=== PATIENT | male | born 1965 | race Caucasian/White ===

== ENCOUNTER 2016-07-31 22:03 | Emergency (ER) | payer SELFPAY ==
[~2016-07-31 22:03] MED LIST: ALPR.5 PO; AUGM500T7 PO; DOXY100C PO
[2016-07-31 22:05] VITALS: BP 127/91; PULSE 101; RESP 16; TEMP 98.7; O2SAT 96
== END 2016-07-31 22:23 | disposition left against medical advice (07) ==
LOC: NED 22:03
DX: L98.8 Other specified disorders of the skin and subcutaneous tissue (principal)
CPT/HCPCS: 99281

== ENCOUNTER 2016-08-02 00:11 | Emergency (ER) | payer SELFPAY ==
[~2016-08-02] VITALS: Ht 160 cm; Wt 88.0 kg
[2016-08-02 00:14] VITALS: BP 144/67; PULSE 100; RESP 16; TEMP 99.1; O2SAT 95
[2016-08-02] MEDS ORDERED: METH40TA PO (00:54)
--- NOTE | 2016-08-02 01:13 | PD ---
HPI Chief Complaint: Skin Problem Time Seen by Provider: 01:04 Travel History International Travel<30 days: No Contact w/Intl Traveler<30days: No Traveled to known affect area: No History of Present Illness HPI Patient 50-year-old male with a history of peripheral vascular disease presents emergency Department with long-standing nonhealing wounds to bilateral ankles. She states she thinks her warms coming out of them. States that he noticed the wound starting to get more more red and he has lost his insurance and therefore not taking the antibiotic creams anymore. Denies any fever denies abdominal pain nausea or vomiting. This pain is been gradually worsening. PFSH Past Medical History Hx Anticoagulant Therapy: No Blood Disorders: No Anxiety: No Depression: No Cancer: No Cardiovascular Problems: No Chemotherapy: No Cerebrovascular Accident: No Diabetes: No Endocrine: No Gastrointestinal Disorders: No Genitourinary: No Immune Disorder: No Kidney Stones: Yes Medical other: Yes (Drug abuse) Musculoskeletal: No Psychiatric: Yes (methadone therapy, prior opiate addiction ) Respiratory: No Integumentary: Yes (cellulitis) Immunizations Current: Yes Tetanus Vaccination: < 5 Years Influenza Vaccination: No Past Surgical History Surgical History: No Previous Surgery AICD: No Hysterectomy: No Joint Replacement: No Pacemaker: No Other Surgery: No Social History Alcohol Use: No Tobacco Use: No Substance Use: No Allergies-Medications (Allergen,Severity, Reaction): Coded Allergies: Adhesives (Verified Allergy, Severe, 08/02/16) Nubain (Verified Allergy, Severe, 08/02/16) Talwin (Verified Allergy, Severe, 08/02/16) *MDRO Multi-Drug Resistant Organism (Verified Adverse Reaction, Unknown, ) 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 The one on the left is fairly deep but does have good granulation tissue. There is significant surrounding cellulitis. While in the right is similar in size approximately 2 7 x 4 cm, this one is scabbed over. Again it is surrounded by some significant cellulitis. HEAD: Atraumatic. Normocephalic. EYES: Pupils equal and round. No scleral icterus. No injection or drainage. ENT: No nasal bleeding or discharge. Mucous membranes pink and moist. NECK: Trachea midline. No JVD. CARDIOVASCULAR: Regular rate and rhythm. No murmur appreciated. RESPIRATORY: No accessory muscle use. Clear to auscultation. Breath sounds equal bilaterally. GASTROINTESTINAL: Abdomen soft, non-tender, nondistended. Hepatic and splenic margins not palpable. MUSCULOSKELETAL: No obvious deformities. No clubbing. No cyanosis. No edema. NEUROLOGICAL: Awake and alert. No obvious cranial nerve deficits. Motor grossly within normal limits. Normal speech. PSYCHIATRIC: Appropriate mood and affect; insight and judgment normal. Data Data Last Documented VS Vital Signs Date Time Temp Pulse Resp B/P Pulse Ox O2 Delivery O2 Flow Rate FiO2 08/02/16 12:07 97.6 80 20 135/69 99 Room Air Orders Complete Blood Count With Diff (08/02/16 01:13) Comprehensive Metabolic Panel (08/02/16 01:13) Westergren Sedimentation Rate (08/02/16 01:13) C-Reactive Protein (Crp) (08/02/16 01:13) Ecg Monitoring (08/02/16 01:13) Iv Access Insert/Monitor (08/02/16 01:13) Oximetry (08/02/16 01:13) Sodium Chloride 0.9% Flush (Ns Flush) (08/02/16 01:15) Blood Culture (08/02/16 05:36) Clindamycin Inj (Cleocin Inj) (08/02/16 05:45) Mri Joint Ankle W&W/O Contrast (08/02/16 ) Mri Joint Ankle W&W/O Contrast (08/02/16 ) Gadodiamide Pf Inj (Omniscan Pf Inj) (08/02/16 09:16) Vancomycin Inj (Vancomycin Inj) (08/02/16 11:45) Methadone (Dolophine) (08/02/16 12:00) Labs Laboratory Tests Test 08/02/16 01:30 White Blood Count 5.3 TH/MM3 Red Blood Count 3.67 MIL/MM3 Hemoglobin 11.8 GM/DL Hematocrit 34.9 % Mean Corpuscular Volume 95.2 FL Mean Corpuscular Hemoglobin 32.2 PG Mean Corpuscular Hemoglobin 33.8 % Concent Red Cell Distribution Width 12.4 % Platelet Count 176 TH/MM3 Mean Platelet Volume 7.7 FL Neutrophils (%) (Auto) 65.2 % Lymphocytes (%) (Auto) 20.1 % Monocytes (%) (Auto) 12.7 % Eosinophils (%) (Auto) 1.7 % Basophils (%) (Auto) 0.3 % Neutrophils # (Auto) 3.4 TH/MM3 Lymphocytes # (Auto) 1.1 TH/MM3 Monocytes # (Auto) 0.7 TH/MM3 Eosinophils # (Auto) 0.1 TH/MM3 Basophils # (Auto) 0.0 TH/MM3 CBC Comment DIFF FINAL Differential Comment Erythrocyte Sedimentation Rate 36 mm/hr Sodium Level 139 MEQ/L Potassium Level 3.3 MEQ/L Chloride Level 101 MEQ/L Carbon Dioxide Level 31.1 MEQ/L Anion Gap 7 MEQ/L Blood Urea Nitrogen 9 MG/DL Creatinine 0.79 MG/DL Estimat Glomerular Filtration 104 ML/MIN Rate Random Glucose 98 MG/DL Calcium Level 8.5 MG/DL Total Bilirubin 1.0 MG/DL Aspartate Amino Transf 58 U/L (AST/SGOT) Alanine Aminotransferase 51 U/L (ALT/SGPT) Alkaline Phosphatase 60 U/L C-Reactive Protein 2.82 MG/DL Total Protein 7.1 GM/DL Albumin 3.1 GM/DL [facility] Medical Decision Making Medical Screen Exam Complete: Yes Emergency Medical Condition: Yes Differential Diagnosis Osteomyelitis (moderate suspicion), chronic sialitis, chronic nonhealing wound. Narrative Course Patient roomed emergency department, minimally elevated ESR and CRP. Prudence would suggest an MRI is indicated for this patient to rule out osteomyelitis. Patient was discussed with Dr. Hopkins at 07 150 follow-up MRI results and disposition the patient properly. He has been given gentamicin. I think that if the MRI is negative he could consider being discharged with follow-up interim exam possibly in ER and i would be happy to see him on tuesday if he does indeed go home. Scripts Sulfamethoxazole-Trimethoprim (Bactrim DS)800-160 Mg Tab1 Tab PO BID 10 Days Ref 0 Prov:Lorie Mcniar MD 08/02/16 John Mcbride MD Aug 02, 2016 01:13
[2016-08-02] MEDS ORDERED: SODIUM CHLORIDE 0.9% FLUSH 10 ML FLUSH IVF PRN (01:15)
[2016-08-02 01:48] LABS: AUTOMATED NEUTROPHIL # 3.4 TH/MM3 (1.8-7.7); BASOPHIL % 0.3 % (0.0-2.0); EOSINOPHIL # 0.1 TH/MM3 (0-0.4); EOSINOPHIL % 1.7 % (0.0-4.0); HEMATOCRIT 34.9 % (39.0-51.0); HEMO FLAGS DIFF FINAL; LYMPH % 20.1 % (9.0-44.0); LYMPHOCYTE # 1.1 TH/MM3 (1.0-4.8); MEAN CELL VOLUME 95.2 FL (80.0-100.0); MEAN CORPUSCULAR HEMOGLOBIN 32.2 PG (27.0-34.0); MEAN CORPUSCULAR HGB CONC 33.8 % (32.0-36.0); MONO % 12.7 % (0.0-8.0); NEUT % 65.2 % (16.0-70.0); PLATELET COUNT 176 TH/MM3 (150-450); RED BLOOD COUNT 3.67 MIL/MM3 (4.50-5.90); RED CELL DISTRIBUTION WIDTH 12.4 % (11.6-17.2); WHITE BLOOD COUNT 5.3 TH/MM3 (4.0-11.0)
[2016-08-02 02:04] LABS: ALKALINE PHOSPHATASE 60 U/L (45-117)
[2016-08-02 02:27] LABS: ALT (GPT) 51 U/L (12-78); ANION GAP 7 MEQ/L (5-15); AST (GOT) 58 U/L (15-37); BICARBONATE 31.1 MEQ/L (21.0-32.0); BLOOD UREA NITROGEN 9 MG/DL (7-18); CHLORIDE 101 MEQ/L (98-107); GLOMERULAR FILTRATION RATE 104 ML/MIN (>89); POTASSIUM 3.3 MEQ/L (3.5-5.1); SODIUM (NA) 139 MEQ/L (136-145)
[2016-08-02] MEDS ORDERED: CLINDAMYCIN INJ 900 MG in SODIUM CHLORIDE 0.9% INJ 100 ML IV ONE (05:45)
[2016-08-02 07:07] VITALS: BP 122/73; PULSE 77; RESP 18; O2SAT 97
[2016-08-02] MEDS ORDERED: GADODIAMIDE PF 287 MG/ML 5 ML VIAL (for RAD MRI) IV ONE (09:16)
--- NOTE | 2016-08-02 10:08 | RADRPT ---
EXAM DATE/TIME: 08/02/2016 08:28 [facility] COMPARISON: No previous studies available for comparison. INDICATIONS : Open wound on meidal right ankle. CONTRAST: 15 cc Omniscan (gadodiamide) IV MEDICAL HISTORY : None. SURGICAL HISTORY : None. ENCOUNTER: Sequela ACUITY: > 1 year PAIN SCORE: 8/10 LOCATION: Right medial ankle TECHNIQUE: Multiplanar, multisequence MRI examination was performed without contrast and after the intravenous a dministration of gadolinium. FINDINGS: Problem specific findings: The examination demonstrates a soft tissue defect along the medial aspect of the left ankle. This is adjacent to the medial malleolus. This is immediately above the tibialis posterior and flexor digitor um tendons. There is no focal fluid collection to indicate abscess. No abnormal marrow signal is seen within the medial malleolus. No abnormal signal is seen within the tibialis posterior or flexor digi torum tendons. The marrow signal throughout the remainder of the ankle and portions of foot visualized is within nor mal limits. No abnormal enhancement is seen. The remainder of the ligaments and tendons within the le ft ankle are intact. CONCLUSION: Soft tissue defect adjacent to the medial malleolus. There is some minimal fluid around the tibialis posterior tendon and some minimal enhancement of the soft tissues around the tibialis posterior tendo n. No abnormal signal is seen within the tibialis posterior tendon itself or in the flexor digitorum tendon No drainable fluid collection is seen. No findings to indicate osteomyelitis are identified. Isra Hopkins MD on August 02, 2016 at 9:58 Board Certified Radiologist. This report was verified electronically.
--- NOTE | 2016-08-02 11:14 | RADRPT ---
EXAM DATE/TIME: 08/02/2016 08:28 [facility] COMPARISON: No previous studies available for comparison. INDICATIONS : Open wound on medial ankle. CONTRAST: 15 cc Omniscan (gadodiamide) IV MEDICAL HISTORY : None. SURGICAL HISTORY : None. ENCOUNTER: Sequela ACUITY: > 1 year PAIN SCORE: 8/10 LOCATION: Left medial ankle TECHNIQUE: Multiplanar, multisequence MRI examination was performed without contrast and after the intravenous a dministration of gadolinium. FINDINGS: Problem specific findings: The examination demonstrates a large soft tissue defect involving the medial aspect of the left ankle . The post contrast images demonstrate cellulitic changes within the soft tissues adjacent to the def ect. There is some minimal fluid evident surrounding the tibialis posterior tendon. There is some min imal enhancement of this as well. There is no evidence of abnormal signal within the tendon itself. T he exam demonstrates normal marrow signal throughout the distal tibia and medial malleolus. No defini te findings to indicate osteomyelitis are identified. No focal, drainable fluid collection is seen. T he remainder of the ligaments and tendons within the left ankle are intact. CONCLUSION: 1. Large soft tissue defect seen medially. There is some fluid and a small amount of enhancement arou nd the tibialis posterior tendon. No abnormal signal is seen within the tendon itself. There is no fo archie drainable abscess. No abnormal marrow signal to indicate osteomyelitis are seen at this time. Isra Hopkins MD on August 02, 2016 at 11:09 Board Certified Radiologist. This report was verified electronically.
[2016-08-02] MEDS ORDERED: VANCOMYCIN INJ 1,000 MG in SODIUM CHLOR 0.9% 250 ML INJ 250 ML IV ONE (11:45)
[2016-08-02] MEDS ORDERED: BACT800T5 PO (11:54)
--- NOTE | 2016-08-02 11:54 | PD ---
Physical Exam Date Seen by Provider: Aug 02, 2016 Time Seen by Provider: 11:49 Narrative 50-year-old male came to the emergency room with history of bilateral medial malleoli or large nonhealing ulcerating wounds. Patient says it has been going on for past 2 weeks. He came in last night to be seen because his legs were getting red and swollen. He was seen by the previous ER physician. Please refer to his documentation regarding the history and physical. Blood test and MRI was done. White count was within normal limit but sedimentation rate and CRP were mildly elevated. Sign out to me was to follow-up on the MRI report. The report came back just a short while ago. Patient does not have any osteomyelitis but just soft tissue swelling along with the ulcer. I discussed it with the trim crew supervisor who was okay with outpatient treatment. The patient does not have insurance and they would not be able to follow up with him directly in his office. IV spoke with the patient and checked his peripheral pulses. Patient has dorsalis pedis bilaterally palpable and dopplerable. Patient has lost his insurance. He does not have a primary care right now. However he did not want to entertain the idea of being admitted. Currently there is no hard-core evidence to admit this patient. I will discharge him home on Bactrim. I've asked him to continue taking Bactrim and if he does not get better he needs to return. Patient is okay with that plan. He will be [facility] to the [facility]. Patient is on methadone 40 mg daily. He says that he missed his dose today since he did not go to get it from the clinic. He has requested for his dose for today here. Data Data Last Documented VS Orders Complete Blood Count With Diff (08/02/16 01:13) Comprehensive Metabolic Panel (08/02/16 01:13) Westergren Sedimentation Rate (08/02/16 01:13) C-Reactive Protein (Crp) (08/02/16 01:13) Ecg Monitoring (08/02/16 01:13) Iv Access Insert/Monitor (08/02/16 01:13) Oximetry (08/02/16 01:13) Sodium Chloride 0.9% Flush (Ns Flush) (08/02/16 01:15) Blood Culture (08/02/16 05:36) Clindamycin Inj (Cleocin Inj) (08/02/16 05:45) Mri Joint Ankle W&W/O Contrast (08/02/16 ) Mri Joint Ankle W&W/O Contrast (08/02/16 ) Gadodiamide Pf Inj (Omniscan Pf Inj) (08/02/16 09:16) Vancomycin Inj (Vancomycin Inj) (08/02/16 11:45) Methadone (Dolophine) (08/02/16 12:00) Labs MDM Supervised Visit with CHIQUITA: No Diagnosis Primary Impression: Cellulitis Qualified Code: L03.119 - Cellulitis of lower extremity, unspecified laterality Additional Impression: Ulcer Referrals: [facility] 2 days Additional Instruction: Please return to the ER if the condition worsens or any other new concerns. Otherwise follow-up with the community clinic whose name and number been given to you. Take the medication as per the prescription direction. Med/Other Pt SpecificInfo: Prescription(s) given Scripts Sulfamethoxazole-Trimethoprim (Bactrim DS)800-160 Mg Tab1 Tab PO BID 10 Days Ref 0 Prov:Lorie Mcnair MD 08/02/16 Disposition: 01 DISCHARGE HOME Condition: Stable Lorie Mcnair MD Aug 02, 2016 11:54 Mean Corpuscular Hemoglobin 33.8 % Concent Red Cell Distribution Width 12.4 % Platelet Count 176 TH/MM3 Mean Platelet Volume 7.7 FL Neutrophils (%) (Auto) 65.2 % Lymphocytes (%) (Auto) 20.1 % Monocytes (%) (Auto) 12.7 % Eosinophils (%) (Auto) 1.7 % Basophils (%) (Auto) 0.3 % Neutrophils # (Auto) 3.4 TH/MM3 Lymphocytes # (Auto) 1.1 TH/MM3 Monocytes # (Auto) 0.7 TH/MM3 Eosinophils # (Auto) 0.1 TH/MM3 Basophils # (Auto) 0.0 TH/MM3 CBC Comment DIFF FINAL Differential Comment Erythrocyte Sedimentation Rate 36 mm/hr Sodium Level 139 MEQ/L Potassium Level 3.3 MEQ/L Chloride Level 101 MEQ/L Carbon Dioxide Level 31.1 MEQ/L Anion Gap 7 MEQ/L Blood Urea Nitrogen 9 MG/DL Creatinine 0.79 MG/DL Estimat Glomerular Filtration 104 ML/MIN Rate Random Glucose 98 MG/DL Calcium Level 8.5 MG/DL Total Bilirubin 1.0 MG/DL Aspartate Amino Transf 58 U/L (AST/SGOT) Alanine Aminotransferase 51 U/L (ALT/SGPT) Alkaline Phosphatase 60 U/L C-Reactive Protein 2.82 MG/DL Total Protein 7.1 GM/DL Albumin 3.1 GM/DL MDM Supervised Visit with CHIQUITA: No Diagnosis Primary Impression: Cellulitis Qualified Code: L03.119 - Cellulitis of lower extremity, unspecified laterality Additional Impression: Ulcer Referrals: [facility] 2 days Additional Instruction: Please return to the ER if the condition worsens or any other new concerns. Otherwise follow-up with the community clinic whose name and number been given to you. Take the medication as per the prescription direction. Med/Other Pt SpecificInfo: Prescription(s) given Scripts Sulfamethoxazole-Trimethoprim (Bactrim DS)800-160 Mg Tab1 Tab PO BID 10 Days Ref 0 Prov:Lorie Mcnair MD 08/02/16 Disposition: 01 DISCHARGE HOME Condition: Stable Lorie Mcnair MD Aug 02, 2016 11:54
[2016-08-02] MEDS ORDERED: METHADONE HCL 10 MG TAB PO ONE (12:00)
[2016-08-02 12:07] VITALS: BP 135/69; PULSE 80; RESP 20; TEMP 97.6; O2SAT 99
== END 2016-08-02 12:44 | disposition home or self-care (01) ==
LOC: NEPC 00:11
DX: S91.002A Unspecified open wound, left ankle, initial encounter (principal); Z87.442 Personal history of urinary calculi; L03.116 Cellulitis of left lower limb; L03.115 Cellulitis of right lower limb; R70.0 Elevated erythrocyte sedimentation rate; I73.9 Peripheral vascular disease, unspecified; I87.2 Venous insufficiency (chronic) (peripheral); I87.313 Chronic venous hypertension (idiopathic) with ulcer of bilateral lower extremity
CPT/HCPCS: 73723; 80053; 85025; 85652; 86140; 87040; 96365; 99285; A9579

== ENCOUNTER 2016-08-05 20:32 | Inpatient (IN) | payer SELFPAY ==
[~2016-08-05] VITALS: Ht 172.7 cm; Wt 72.5 kg
[~2016-08-05 20:32] MED LIST changes: +BACT800T5 PO; +METH40TA PO
[2016-08-05 20:35] VITALS: BP 134/91; PULSE 88; RESP 16; TEMP 98.9; O2SAT 96
[2016-08-05] MEDS ORDERED: CLINDAMYCIN INJ 600 MG in SODIUM CHLORIDE 0.9% INJ 100 ML IV ONE (22:30)
[2016-08-05 23:06] LABS: AUTOMATED NEUTROPHIL # 3.8 TH/MM3 (1.8-7.7); BASOPHIL % 0.4 % (0.0-2.0); EOSINOPHIL # 0.3 TH/MM3 (0-0.4); EOSINOPHIL % 4.4 % (0.0-4.0); HEMATOCRIT 37.5 % (39.0-51.0); HEMO FLAGS DIFF FINAL; LYMPH % 21.2 % (9.0-44.0); LYMPHOCYTE # 1.2 TH/MM3 (1.0-4.8); MEAN CELL VOLUME 96.5 FL (80.0-100.0); MEAN CORPUSCULAR HEMOGLOBIN 31.8 PG (27.0-34.0); MEAN CORPUSCULAR HGB CONC 32.9 % (32.0-36.0); MONO % 8.7 % (0.0-8.0); NEUT % 65.3 % (16.0-70.0); PLATELET COUNT 184 TH/MM3 (150-450); RED BLOOD COUNT 3.88 MIL/MM3 (4.50-5.90); RED CELL DISTRIBUTION WIDTH 12.5 % (11.6-17.2); WHITE BLOOD COUNT 5.8 TH/MM3 (4.0-11.0)
[2016-08-05 23:21] LABS: BICARBONATE 29.2 MEQ/L (21.0-32.0); POTASSIUM 3.4 MEQ/L (3.5-5.1)
[2016-08-06] VITALS (7 sets, daily range): BP systolic 105–139; BP diastolic 64–78; PULSE 70–90; RESP 16–20; TEMP 98.1–98.7; O2SAT 96–99
[2016-08-06] MEDS ORDERED: NALOXONE HCL 0.4 MG/ML AMP IV PRN ×2 (00:15→00:30)
[2016-08-06] MEDS ORDERED: SODIUM CHLORIDE 0.9% FLUSH 10 ML FLUSH IV FLUSH PRN ×2 (00:15→00:30)
--- NOTE | 2016-08-06 00:21 | PD ---
HPI Chief Complaint: Skin Problem Time Seen by Provider: 22:18 Travel History International Travel<30 days: No Contact w/Intl Traveler<30days: No Traveled to known affect area: No History of Present Illness HPI This is a 51-year-old male who presents to the emergency department with poorly healing wounds on both his right and left lower extremities. He says he's had the right leg wound for months and he is to follow in wound care with Dr. Keyes lost his insurance and has been unable to follow-up. Over the past week his left leg has gotten increasingly warm, painful, with more green and yellow discharge and redness around the wound. He denies any fevers or chills. He was seen here from the emergency department for this wound several days ago and started on antibiotics. He was told that he should stay in the hospital but he declined at that time. He's been taking Bactrim for 4 days and is not improving. He also reports that he sees little insects in his wound with antenna, and he sees them climbing in and out of his skin. He says "I noticed sounds crazy be you can see them if you look really hard." PFSH Past Medical History Hx Anticoagulant Therapy: No Blood Disorders: No Anxiety: No Depression: No Cancer: No Cardiovascular Problems: No Chemotherapy: No Cerebrovascular Accident: No Diabetes: No Diminished Hearing: No Endocrine: No Gastrointestinal Disorders: No Genitourinary: No Immune Disorder: No Kidney Stones: Yes Musculoskeletal: No Psychiatric: Yes (methadone therapy, prior opiate addiction ) Respiratory: No Integumentary: Yes (CELLULITIS) Immunizations Current: Yes Tetanus Vaccination: Unknown Influenza Vaccination: No Past Surgical History Surgical History: No Previous Surgery AICD: No Hysterectomy: No Joint Replacement: No Pacemaker: No Social History Alcohol Use: No Tobacco Use: No Substance Use: No (HX OPIATES) Allergies-Medications (Allergen,Severity, Reaction): 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 8x3 cm ulcerative wound on the left lower extremity with purulent green and yellow drainage surrounded by warmth, erythema and edema. Small scattered ulcerative lesions on the hands at different stages of healing. HEAD: Atraumatic. Normocephalic. EYES: Pupils equal and round. No injection or drainage. ENT: Moist mucous membranes NECK: Trachea midline. CARDIOVASCULAR: Regular rate and rhythm. No murmur appreciated.2+ bilateral d.p. pulses. RESPIRATORY: Clear to auscultation. Breath sounds equal bilaterally. GASTROINTESTINAL: Abdomen soft, non-tender, nondistended. MUSCULOSKELETAL: No obvious deformities. NEUROLOGICAL: Awake and alert. No obvious cranial nerve deficits. Moving all extremities. PSYCHIATRIC: Appropriate mood and affect; insight and judgment normal. Data Data Last Documented VS Vital Signs Date Time Temp Pulse Resp B/P Pulse Ox O2 Delivery O2 Flow Rate FiO2 08/05/16 20:35 98.9 88 16 134/91 96 Room Air Orders Complete Blood Count With Diff (08/05/16 22:28) Basic Metabolic Panel (Bmp) (08/05/16 22:28) C-Reactive Protein (Crp) (08/05/16 22:28) Westergren Sedimentation Rate (08/05/16 22:28) ^ Insert Iv (08/05/16 22:28) Clindamycin Inj (Cleocin Inj) (08/05/16 22:30) Wound Culture And Gram Stain (08/06/16 00:12) Wound Culture And Gram Stain (08/06/16 00:13) Admit Order (Ed Use Only) (08/06/16 00:14) Labs Laboratory Tests Test 08/05/16 22:50 White Blood Count 5.8 TH/MM3 Red Blood Count 3.88 MIL/MM3 Hemoglobin 12.3 GM/DL Hematocrit 37.5 % Mean Corpuscular Volume 96.5 FL Mean Corpuscular Hemoglobin 31.8 PG Mean Corpuscular Hemoglobin 32.9 % Concent Red Cell Distribution Width 12.5 % Platelet Count 184 TH/MM3 Mean Platelet Volume 7.7 FL Neutrophils (%) (Auto) 65.3 % Lymphocytes (%) (Auto) 21.2 % Monocytes (%) (Auto) 8.7 % Eosinophils (%) (Auto) 4.4 % Basophils (%) (Auto) 0.4 % Neutrophils # (Auto) 3.8 TH/MM3 Lymphocytes # (Auto) 1.2 TH/MM3 Monocytes # (Auto) 0.5 TH/MM3 Eosinophils # (Auto) 0.3 TH/MM3 Basophils # (Auto) 0.0 TH/MM3 CBC Comment DIFF FINAL Differential Comment Erythrocyte Sedimentation Rate 33 mm/hr Sodium Level 143 MEQ/L Potassium Level 3.4 MEQ/L Chloride Level 107 MEQ/L Carbon Dioxide Level 29.2 MEQ/L Anion Gap 7 MEQ/L Blood Urea Nitrogen 3 MG/DL Creatinine 0.70 MG/DL Estimat Glomerular Filtration 119 ML/MIN Rate Random Glucose 117 MG/DL Calcium Level 8.5 MG/DL C-Reactive Protein 2.66 MG/DL MDM Medical Decision Making Medical Screen Exam Complete: Yes Emergency Medical Condition: Yes Medical Record Reviewed: Yes (patient was seen here in the emergency department 4 days ago and started on oral antibiotic therapy. He also has been followed by) Interpretation(s) Afebrile, no tachycardia, hypertensive Differential Diagnosis Cellulitis, wound infection, sepsis Narrative Course This is a 51-year-old male who presents to the emergency department with poorly healing wounds on his lower extremities. The left one appears to have an acute cellulitis, surrounded by some redness and warmth. His labs are unchanged from 4 days ago however his cellulitis is worsening despite oral antibiotic therapy. I think it's reasonable to admit this patient to the hospital for IV antibiotics and wound care. He may need debridement of the wounds. MRIs from earlier this week demonstrate no underlying osteomyelitis. 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 He kept describing insects in the wounds and I don't appreciate anything on exam, and he has scattered punctate lesions on his hands which suggest that he's been picking at his skin. Physician Communication Physician Communication Discussed with Dr. Dixon Diagnosis Primary Impression: Cellulitis Qualified Code: L03.116 - Cellulitis of left lower extremity Admitting Information Admitting Physician Requests: Admit Tere Bah MD Aug 06, 2016 00:21
[2016-08-06] MEDS ORDERED: POTASSIUM CHLORIDE 20 MEQ CONTROLLED RELEASE TAB PO ONE ×3 (00:45→15:30)
[2016-08-06] MEDS ORDERED: Vancomycin Consult Pharmacy 1 EA OTHER SCH (00:45)
[2016-08-06] MEDS: PIPERACIL-TAZO 4.5 GM PREMIX 100 ML IV SCH ×4 (01:05→19:35)
[2016-08-06] MEDS ORDERED: VANCOMYCIN INJ 1,750 MG in SODIUM CHLORID 0.9% 500 ML INJ 500 ML IV ONE (02:00)
--- NOTE | 2016-08-06 04:28 | HHI.HP ---
[facility] Service [facility] ([place], [place])ists Primary Care Physician Skinny Boo Admission Diagnosis cellulitis, wound infection Diagnoses: (1) Cellulitis (2) Ulcer Chief Complaint: worsening infection in lower extremities and elbow Travel History International Travel<30 Days: No Contact w/Intl Traveler <30 Da: No Traveled to Known Affected Are: No History of Present Illness Written by Alejandra Iglesias, acting as scribe for Dr. Dixon on 08/06/16 at 04:28. Mr. Perez is seen in the CDU. He states he has a new right elbow wound and left ankle wound for the past year along with a chronic right ankle wound that has been present for many years. He states that they are infected and painful and these symptoms are severe and have progressively worsened despite 3-4 days of antibiotic treatment with Bactrim - states he go "considerably worse" despite treatment. Bilateral medial malleolus with large wounds - eschar on right, warm and red bilateral lower extremities with taut skin appearance. The patient is observed frequently scratching and complaining of generalized pruritus. He is also digging at right elbow wound at times during visit. Right elbow decubitus - quarter-sized. Denies fever, shortness of breath, chest pain. Review of Systems Except as stated in HPI: all other systems reviewed are Neg Past Family Social History Past Medical History Hepatitis C History of Opioid abuse Denies diabetes mellitus, hypertension, CAD, CHF, afib, respiratory problems, kidney problems, DVT, PE, or CVA, seizures, thyroid problems, or cancers Past Surgical History Denies . Reported Medications Reported Meds & Active Scripts Active Bactrim DS (Sulfamethoxazole-Trimethoprim) 800-160 Mg Tab 1 Tab PO BID 10 Days Reported Methadone (Methadone HCl) 40 Mg Tab 40 Mg PO DAILY . 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 Ordered Medications Current Medications Clindamycin Phosphate/Sodium Chloride (Cleocin Inj/NS Inj) 104 ml @ 208 mls/hr ONCE ONCE IV Last administered on 08/05/16 23:34; Start 08/05/16 at 22:30; Stop 08/05/16 at 22:59; Status DC Sodium Chloride (NS Flush) 2 ml UNSCH PRN IV FLUSH FLUSH AFTER USING IV ACCESS ; Start 08/06/16 at 00:30; Stop 08/06/16 at 00:44; Status DC Sodium Chloride (NS Flush) 2 ml BID IV FLUSH ; Start 08/06/16 at 09:00; Stop at 09:00; Status DC Naloxone HCl (Narcan Inj) 0.4 mg UNSCH PRN IV SEE LABEL COMMENTS; Start at 00:30; Stop 08/06/16 at 00:45; Status DC Sodium Chloride (NS Flush) 2 ml UNSCH PRN IV FLUSH FLUSH AFTER USING IV ACCESS ; Start 08/06/16 at 00:15 Sodium Chloride (NS Flush) 2 ml BID IV FLUSH ; Start 08/06/16 at 09:00 Naloxone HCl 0.4 mg 0.4 mg UNSCH PRN IV SEE LABEL COMMENTS; Start 08/06/16 at 00:15 Pharmacy Profile Note 0 ml @ 0 mls/hr UNSCH OTHER ; Start 08/06/16 at 00:45 Piperacillin Sod/ Tazobactam Sod (Zosyn 4.5 Gm Premix) 100 ml @ 200 mls/hr Q6H IV Last administered on 08/06/16 01:05; Start 08/06/16 at 01:00 Potassium Chloride 40 meq 40 meq ONCE ONCE PO Last administered on 08/06/16 01:05; Start 08/06/16 at 00:45; Stop 08/06/16 at 00:46; Status DC Vancomycin HCl/ Sodium Chloride (Vancomycin Inj/ NS 500 ml Inj) 517.5 ml @ 250 mls/hr ONCE ONCE IV Last administered on 08/06/16 02:16; Start 08/06/16 at 02 :00; Stop 08/06/16 at 04:04; Status DC Family History Father with heart problems - alive aged 83 y/o . Social History Tobacco: denies; quit smoking 1995 - smoked for 10 years Alcohol: denies Illicit drugs: former IV opioid addiction . Physical Exam Vital Signs Vital Signs Date Time Temp Pulse Resp B/P Pulse Ox O2 Delivery O2 Flow Rate FiO2 08/06/16 02:25 98.4 90 18 118/71 99 08/06/16 00:41 80 18 122/64 98 Room Air 08/05/16 20:35 98.9 88 16 134/91 96 Room Air Physical Exam GENERAL: This is a slightly anxious middle-aged male patient. The patient is observed frequently scratching and complaining of pruritis. He is also digging at right elbow wound at times during visit. SKIN: Bilateral medial malleolus with large wounds - eschar on right and small amount of eschar on left, warm and red lower extremities. HEAD: Atraumatic. Normocephalic. EYES: No scleral icterus. No injection or drainage. ENT: Nose without bleeding, purulent drainage. NECK: Trachea midline. No JVD or lymphadenopathy. CARDIOVASCULAR: Regular rate and rhythm without murmurs, gallops, or rubs. RESPIRATORY: Clear to auscultation. Breath sounds equal bilaterally. No wheezes , rales, or rhonchi. GASTROINTESTINAL: Abdomen soft, non-tender, nondistended. No guarding. MUSCULOSKELETAL: Extremities without clubbing, cyanosis, or edema. No calf tenderness. NEUROLOGICAL: Awake and alert. Motor and sensory grossly within normal limits. Normal speech. . Laboratory Laboratory Tests Test 08/05/16 22:50 White Blood Count 5.8 Red Blood Count 3.88 Hemoglobin 12.3 Hematocrit 37.5 Mean Corpuscular Volume 96.5 Mean Corpuscular Hemoglobin 31.8 Mean Corpuscular Hemoglobin 32.9 Concent Red Cell Distribution Width 12.5 Platelet Count 184 Mean Platelet Volume 7.7 Neutrophils (%) (Auto) 65.3 Lymphocytes (%) (Auto) 21.2 Monocytes (%) (Auto) 8.7 Eosinophils (%) (Auto) 4.4 Basophils (%) (Auto) 0.4 Neutrophils # (Auto) 3.8 Lymphocytes # (Auto) 1.2 Monocytes # (Auto) 0.5 Eosinophils # (Auto) 0.3 Basophils # (Auto) 0.0 CBC Comment DIFF FINAL Differential Comment Erythrocyte Sedimentation Rate 33 Sodium Level 143 Potassium Level 3.4 Chloride Level 107 Carbon Dioxide Level 29.2 Anion Gap 7 Blood Urea Nitrogen 3 Creatinine 0.70 Estimat Glomerular Filtration 119 Rate Random Glucose 117 Calcium Level 8.5 C-Reactive Protein 2.66 Date/Time Procedure Status Source Growth 08/06/16 00:29 Gram Stain Received Wound Leg Pending 08/06/16 00:29 Wound Culture Received Wound Leg Pending Result Diagram: 08/05/16 2250 08/05/16 2250 Assessment and Plan Problem List: (1) Cellulitis ICD Code: L03.90 Status: Acute (2) Pruritus ICD Code: L29.9 Status: Acute Assessment and Plan Cellulitis bilateral lower extremities with failed outpatient therapy - Bilateral lower extremity doppler u/s to r/o DVT - IV Zosyn 4.5 gm IV q6h and Vancomycin IV with pharmacy consult for assistance with therapeutic monitoring and dosage - consult podiatry Pruritus - Atarax 25 mg q6h PRN pruritus History of IV opioid abuse - Nursing to call the methadone clinic to verify patient's methadone dosage - will order after verified DVT prophylaxis - Lovenox 40 mg subq q24h - will need to adjust dose if Doppler study of legs is positive. Discussed Condition With Patient, ER physician, and patient's RN Physician Certification 2 Midnight Certification Type: Admission for Inpatient Services Order for Inpatient Services The services are ordered in accordance with Medicare regulations or non- Medicare payer requirements, as applicable. In the case of services not specified as inpatient-only, they are appropriately provided as inpatient services in accordance with the 2-midnight benchmark. Estimated LOS (days): 3 days is the estimated time the patient will need to remain in the hospital, assuming treatment plan goals are met and no additional complications. Post-Hospital Plan: Not yet determined Problem Qualifiers (1) Cellulitis: Qualified Code: L03.116 - Cellulitis of left lower extremity Alejandra Iglesias Aug 06, 2016 04:28
[2016-08-06] MEDS: hydrOXYzine HCL 25 MG TAB PO PRN ×2 (08:43→15:22)
[2016-08-06] MEDS: METHADONE HCL 10 MG TAB PO SCH (08:43)
[2016-08-06] MEDS: ENOXAPARIN SODIUM 40 MG/0.4 ML SYRINGE SQ SCH (08:43)
[2016-08-06] MEDS: SODIUM CHLORIDE 0.9% FLUSH 10 ML FLUSH IV FLUSH SCH ×2 (08:46→19:35)
[2016-08-06] MEDS ORDERED: SODIUM CHLORIDE 0.9% FLUSH 10 ML FLUSH IV FLUSH SCH (09:00)
--- NOTE | 2016-08-06 09:55 | RADRPT ---
EXAM DATE/TIME: 08/06/2016 08:03 [facility] COMPARISON: No previous studies available for comparison. INDICATIONS : Bilateral leg swelling and pain. MEDICAL HISTORY : Hepatitis C. Cellulitis. Leg swelling. Ulcers. SURGICAL HISTORY : None. ENCOUNTER: Initial ACUITY: 3 weeks PAIN SCORE: 8/10 LOCATION: Bilateral leg. TECHNIQUE: Venous ultrasound of the left and right leg was performed from the inguinal ligament to the proximal calf. Real-time, color Doppler and spectral tracing, compression and augmentation techniques were us ed. FINDINGS: RIGHT LEG: There is normal compressibility of the deep venous system from the inguinal region to the proximal ca lf. No echogenic clot is seen in the lumen of the common femoral, femoral, popliteal, and posterior tibial veins. There is a normal response of the venous system to proximal and distal augmentation an d respiration. LEFT LEG: There is normal compressibility of the deep venous system from the inguinal region to the proximal ca lf. No echogenic clot is seen in the lumen of the common femoral, femoral, popliteal, and posterior tibial veins. There is a normal response of the venous system to proximal and distal augmentation an d respiration. CONCLUSION: Negative for deep venous thrombosis. Bilateral inguinal adenopathy. Gaurang Hopkins MD FACR on August 06, 2016 at 9:52 Board Certified Radiologist. This report was verified electronically.
[2016-08-06] MEDS ORDERED: FUROSEMIDE 40 MG TAB PO ONE (12:00)
--- NOTE | 2016-08-06 12:07 | PD.POD.CON ---
Patient Intake Chief Complaint Bilateral medial ankle wounds Consult Requested by Dr. Sloan Reason for Consult Evaluation and treatment of ankle wounds Primary Care Physician Skinny Boo History of Present Illness 51-year-old male known to me from previous wound center visits. Patient was following in the wound center in [place] March of this year. Patient changed insurances and was followed by a wound care nurse to [facility]. Patient is now uninsured and has had these bilateral wounds for quite some time. He presented to [facility] with complaints of draining wounds. I was consulted for treatment. 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) Preferred Language to Discuss: [place] Barriers to Learning: None Teaching Method: Discussion Vital Signs Date Time Temp Pulse Resp B/P Pulse Ox O2 Delivery O2 Flow Rate FiO2 08/06/16 11:48 98.1 87 18 129/78 97 08/06/16 07:01 98.1 81 20 117/70 96 08/06/16 02:25 98.4 90 18 118/71 99 08/06/16 00:41 80 18 122/64 98 Room Air 08/05/16 20:35 98.9 88 16 134/91 96 Room Air Pain scale used: 0-10 numeric scale Pain score: 6 Medications Current Medications Clindamycin Phosphate/Sodium Chloride (Cleocin Inj/NS Inj) 104 ml @ 208 mls/hr ONCE ONCE IV Last administered on 08/05/16t 23:34; Start 08/05/16 at 22:30; Stop 08/05/16 at 22:59; Status DC Sodium Chloride (NS Flush) 2 ml UNSCH PRN IV FLUSH FLUSH AFTER USING IV ACCESS ; Start 08/06/16 at 00:30; Stop 08/06/16 at 00:44; Status DC Sodium Chloride (NS Flush) 2 ml BID IV FLUSH ; Start 08/06/16 at 09:00; Stop at 09:00; Status DC Naloxone HCl (Narcan Inj) 0.4 mg UNSCH PRN IV SEE LABEL COMMENTS; Start at 00:30; Stop 08/06/16 at 00:45; Status DC Sodium Chloride (NS Flush) 2 ml UNSCH PRN IV FLUSH FLUSH AFTER USING IV ACCESS ; Start 08/06/16 at 00:15 Sodium Chloride (NS Flush) 2 ml BID IV FLUSH Last administered on 08/06/16 08: 46; Start 08/06/16 at 09:00 Naloxone HCl 0.4 mg 0.4 mg UNSCH PRN IV SEE LABEL COMMENTS; Start 08/06/16 at 00:15 Pharmacy Profile Note 0 ml @ 0 mls/hr UNSCH OTHER ; Start 08/06/16 at 00:45 Piperacillin Sod/ Tazobactam Sod (Zosyn 4.5 Gm Premix) 100 ml @ 200 mls/hr Q6H IV Last administered on 08/06/16 06:20; Start 08/06/16 at 01:00 Potassium Chloride 40 meq 40 meq ONCE ONCE PO Last administered on 08/06/16 01:05; Start 08/06/16 at 00:45; Stop 08/06/16 at 00:46; Status DC Vancomycin HCl/ Sodium Chloride (Vancomycin Inj/ NS 500 ml Inj) 517.5 ml @ 250 mls/hr ONCE ONCE IV Last administered on 08/06/16 02:16; Start 08/06/16 at 02 :00; Stop 08/06/16 at 04:04; Status DC Hydroxyzine HCl (Atarax) 25 mg Q6H PRN PO pruritus Last administered on 08:43; Start 08/06/16 at 05:15 Enoxaparin Sodium (Lovenox Inj) 40 mg Q24H SQ Last administered on 08/06/16 08 :43; Start 08/06/16 at 09:00 Methadone HCl 40 mg 40 mg DAILY PO Last administered on 08/06/16 08:43; Start 08/06/16 at 09:00 Vancomycin HCl/ Sodium Chloride (Vancomycin Inj/ NS 250 ml Inj) 262.5 ml @ 262.5 mls/ hr Q12H IV ; Start 08/06/16 at 18:00 Miscellaneous Information SPECIFIC LAB TO BE SHREYA... ONCE ONCE .XX ; Start 08/07 at 17:45; Stop 08/07/16 at 17:46 Furosemide (Lasix) 40 mg ONCE ONCE PO ; Start 08/06/16 at 12:00; Stop 08/06/16 at 12:01; Status UNV Potassium Chloride (KCl) 20 meq ONCE ONCE PO ; Start 08/06/16 at 12:00; Stop at 12:01; Status UNV Past, Family & Social History Past Medical History [facility] Reviewed: Yes Infectious disease: REPORTS HX OF: Hepatitis (C) Psychiatric: REPORTS HX OF: Anxiety Past Surgical History Gastrointestinal: DENIES HX OF: Colectomy, total Family Medical History Cardiac arrest G8 FATHER FH: bladder cancer G8 FATHER FH: prostate cancer G8 FATHER Substance Use Substance use: Denies use Review of Systems Constitutional: COMPLAINS OF: Good general health, DENIES: Recent weight change, Fever, Fatigue, Pain Eyes: DENIES: Blurred/Double vision, Hx eye disease Ears/Nose/Mouth/Throat: DENIES: Ringing in ears, Change in hearing, Deafness/ hearing aid, Sore throat, Trouble swallowing Cardiovascular: COMPLAINS OF: Swelling legs / ankles Respiratory: DENIES: Frequent colds, Difficulty breathing, Cough (productive?) , Asthma / hay fever, Emphysema, TB Gastrointestinal: DENIES: Heartburn, Vomiting, Constipation, Diarrhea, Black Stools, Blood in stools, Peptic ulcer, Abdominal pain Genitourinary: DENIES: Renal disease, Dialysis, Freq or burning urination, Blood in urine, Difficulty in urination, Incontinence Musculoskeletal: DENIES: Leg pain (rest or walk), Back pain, Joint pain/swell/ dysarthr, Deformaties Integumentary: DENIES: Rash, Hx masses/lumps, Birthmrk/wart/lump/nodule, Slow to heal after cuts, Bleeding/bruising tendncy Neurological: DENIES: CVA/Stroke, Spinal Cord Injury, Seizures, Tremors, Numbness/tingling, Changes in sensation, Difficulty with balance Psychiatric: DENIES: Depression/anxiety, Change in memory, Insomnia Endocrine: DENIES: Thyroid disease, Heat/cold intolerance, Excessive thirst Hematologic/Lymphatic: DENIES: Blood borne disease, Anemia, Blood abnormalities Allergic/Immunologic: DENIES: Rheumatoid Arthritis, Skin/Food/Drug reaction, Lupus, Sickle Cell disease, Scleroderma, Vasculitis Exam-Podiatry Constitutional General appearance: comfortable Nutritional status: normal Orientation: alert and oriented x3 Dermatological Exam Skin Temp - Right: Within Normal Limits Skin Texture - Right: Within Normal Limits Skin Elasticity - Right: Within Normal Limits Skin Tugor - Right: Within Normal Limits Hair Growth - Right: Within Normal Limits Pigmentation - Right: Within Normal Limits Skin Temp - Left: Within Normal Limits Skin Texture - Left: Within Normal Limits Skin Elasticity - Left: Within Normal Limits Skin Tugor - Left: Within Normal Limits Hair Growth - Left: Within Normal Limits Pigmentation - Left: Within Normal Limits Ulcers: Location/Measurements Large ulcerations bilateral medial ankle. Right one has dry eschar without signs of infection. Left wound is deep with some necrotic tissue. Vascular/Lymphatic Exam R Dorsails Pedis: Palpable L Dorsails Pedis: Palpable R Posterior Tibial: Palpable L Posterior Tibial: Palpable Neurologic Exam Details No neurologic deficit present Muscle Strength Dorsiflexion (Right): Normal Plantarflexion (Right): Normal Inversion (Right): Normal Eversion (Right): Normal Digital (Right): Normal Dorsiflexion (Left): Normal Plantarflexion (Left): Normal Inversion (Left): Normal Eversion (Left): Normal Digital (Left): Normal Foot Range of Motion Dorsiflexion (Right): Normal Plantarflexion (Right): Normal Inversion (Right): Normal Eversion (Right): Normal Digital (Right): Normal Dorsiflexion (Left): Normal Plantarflexion (Left): Normal Inversion (Left): Normal Eversion (Left): Normal Digital (Left): Normal Extremities Edema: Left lower extremity: 2+, pitting, ankle, leg Right lower extremity: 2+, pitting, ankle, leg Wound Assessment Wound Information - Wound One Wound Location: Right medial ankle Lab and Radiology Results Laboratory Laboratory Tests Test 08/05/16 22:50 White Blood Count 5.8 TH/MM3 Red Blood Count 3.88 MIL/MM3 Hemoglobin 12.3 GM/DL Hematocrit 37.5 % Mean Corpuscular Volume 96.5 FL Mean Corpuscular Hemoglobin 31.8 PG Mean Corpuscular Hemoglobin 32.9 % Concent Red Cell Distribution Width 12.5 % Platelet Count 184 TH/MM3 Mean Platelet Volume 7.7 FL Neutrophils (%) (Auto) 65.3 % Lymphocytes (%) (Auto) 21.2 % Monocytes (%) (Auto) 8.7 % Eosinophils (%) (Auto) 4.4 % Basophils (%) (Auto) 0.4 % Neutrophils # (Auto) 3.8 TH/MM3 Lymphocytes # (Auto) 1.2 TH/MM3 Monocytes # (Auto) 0.5 TH/MM3 Eosinophils # (Auto) 0.3 TH/MM3 Basophils # (Auto) 0.0 TH/MM3 CBC Comment DIFF FINAL Differential Comment Erythrocyte Sedimentation Rate 33 mm/hr Laboratory Tests Test 08/05/16 22:50 Sodium Level 143 MEQ/L Potassium Level 3.4 MEQ/L Chloride Level 107 MEQ/L Carbon Dioxide Level 29.2 MEQ/L Anion Gap 7 MEQ/L Blood Urea Nitrogen 3 MG/DL Creatinine 0.70 MG/DL Estimat Glomerular Filtration 119 ML/MIN Rate Random Glucose 117 MG/DL Calcium Level 8.5 MG/DL C-Reactive Protein 2.66 MG/DL Microbiology Date/Time Procedure Status Source Growth 08/06/16 00:29 Gram Stain - Final Resulted Wound Leg 08/06/16 00:29 Wound Culture Resulted Wound Leg Pending 08/06/16 00:29 Gram Stain - Final Resulted Wound Leg 08/06/16 00:29 Wound Culture Resulted Wound Leg Pending Radiology Last Impressions Lower Extremity Ultrasound 08/06/16 0000 Signed Impressions: Service Date/Time: Saturday, August 06, 2016 08:03 - CONCLUSION: Negative for deep venous thrombosis. Bilateral inguinal adenopathy. Gaurang Hopkins MD FACR Assessment/Plan Problem List: (1) Venous hypertension, chronic, with ulcer Status: Chronic (2) Ulcer Status: Chronic Additional Plans & Procedures PLAN: Start Maxorb extra AG dressings. Patient can follow-up in the [facility] with Dr. Molina. Patient needs some diuresis. Discussed with Dr. Sloan. Continue to follow during the course of this admission. Problem Qualifiers (1) Venous hypertension, chronic, with ulcer: Qualified Code: I87.313 - Venous hypertension, chronic, with ulcer, bilateral Saad Keyes DPM Aug 06, 2016 12:07
--- NOTE | 2016-08-06 15:25 | HHI.PR ---
Subjective Remarks Follow-up for chronic lower extremity wounds. The patient continues to complain of pruritus from his scabs and continues to pick at them during the history and exam despite being told not to. He is not sure if the hydroxyzine earlier helped or not. No fevers or chills. Discussed with podiatry, Dr. Keyes, who recommended diuresis, following up wound culture, and outpatient wound care with the [facility] and Dr. Molina. Discussed with RN, case management to arrange [facility] follow-up. The patient reports good diuresis today. The patient reports that he has pulled worms out of the wound on his elbow. Objective Vitals Vital Signs Date Time Temp Pulse Resp B/P Pulse Ox O2 Delivery O2 Flow Rate FiO2 08/06/16 11:48 98.1 87 18 129/78 97 08/06/16 07:01 98.1 81 20 117/70 96 08/06/16 02:25 98.4 90 18 118/71 99 08/06/16 00:41 80 18 122/64 98 Room Air 08/05/16 20:35 98.9 88 16 134/91 96 Room Air I/O 08/05/16 08/05/16 08/05/16 08/06/16 08/06/16 08/06/16 07:00 15:00 23:00 07:00 15:00 23:00 Output Total 925 ml Balance -925 ml Output Urine Total 925 ml Result Diagram: 08/05/16 2250 08/05/16 2250 Imaging Last Impressions Lower Extremity Ultrasound 08/06/16 0000 Signed Impressions: Service Date/Time: Saturday, August 06, 2016 08:03 - CONCLUSION: Negative for deep venous thrombosis. Bilateral inguinal adenopathy. Gaurang Hopkins MD FACR Objective Remarks GENERAL: Well-developed well-nourished. In no acute distress. SKIN: Warm and dry. Right elbow with open ulceration with minimal surrounding erythema and no drainage. Bilateral lower extremities with Baldomero wraps in place. Multiple punctate areas of scabbing on the upper and lower extremities from scratching. HEENT: Normocephalic. Pupils equal and round. Mucous membranes pink and moist. CARDIOVASCULAR: Regular rate and rhythm. No murmur appreciated. RESPIRATORY: No accessory muscle use. Clear to auscultation. Breath sounds equal bilaterally. GASTROINTESTINAL: Abdomen soft, non-tender, nondistended. Bowel sounds x4. MUSCULOSKELETAL: Baldomero wraps for the knee. Some erythema from scratching on the thighs. 1+ lower extremity edema. NEUROLOGICAL: Awake and alert. No focal neurological deficits. Moves upper and lower extremities spontaneously. Normal speech. PSYCHIATRIC: Slightly anxious mood and affect; insight and judgment normal. A/P Problem List: (1) Cellulitis ICD Code: L03.90 Status: Acute (2) Pruritus ICD Code: L29.9 Status: Acute Assessment and Plan 51-year-old male with a past medical history of hepatitis C, opiate abuse in the past, and chronic extremity wounds who presented for worsening of his wounds Cellulitis of chronic bilateral lower extremity wounds with failed outpatient therapy with Bactrim. Reviewed: Afebrile with no leukocytosis. Doppler negative for DVT. - IV Zosyn and vancomycin pending results of wound cultures - consulted podiatry/wound care, discuss with Dr. Keyes who recommended continuing IV antibiotics pending wound cultures, diuresis, and outpatient wound care. Appreciate dressing recommendations. - Diuresis with oral Lasix, potassium replacement, monitor intake and output, follow up renal function Pruritus secondary to weeping edema - Atarax 25 mg q6h PRN pruritus History of IV opioid abuse - Continue home methadone DVT prophylaxis - Lovenox 40 mg subq q24h Discharge Planning Follow up results of wound cultures. Problem Qualifiers (1) Cellulitis: Qualified Code: L03.116 - Cellulitis of left lower extremity Ish Aguero Aug 06, 2016 15:25
[2016-08-06] MEDS: VANCOMYCIN INJ 1,250 MG in SODIUM CHLOR 0.9% 250 ML INJ 250 ML IV SCH (17:29)
[2016-08-06] MEDS: FUROSEMIDE 20 MG TAB PO SCH (17:29)
[2016-08-07 00:20] VITALS: BP 114/59; PULSE 86; RESP 18; TEMP 99.9; O2SAT 96
[2016-08-07] MEDS: PIPERACIL-TAZO 4.5 GM PREMIX 100 ML IV SCH ×4 (00:36→19:10)
[2016-08-07] MEDS: hydrOXYzine HCL 25 MG TAB PO PRN (00:36)
[2016-08-07 05:08] VITALS: BP 99/58; PULSE 71; RESP 18; TEMP 98.5; O2SAT 95
[2016-08-07] MEDS: VANCOMYCIN INJ 1,250 MG in SODIUM CHLOR 0.9% 250 ML INJ 250 ML IV SCH ×2 (05:24→17:53)
[2016-08-07 07:59] LABS: AUTOMATED NEUTROPHIL # 3.3 TH/MM3 (1.8-7.7); BASOPHIL # 0.1 TH/MM3 (0-0.2); EOSINOPHIL # 0.2 TH/MM3 (0-0.4); EOSINOPHIL % 3.3 % (0.0-4.0); HEMATOCRIT 43.6 % (39.0-51.0); HEMO FLAGS DIFF FINAL; LYMPH % 25.4 % (9.0-44.0); LYMPHOCYTE # 1.4 TH/MM3 (1.0-4.8); MEAN CELL VOLUME 95.9 FL (80.0-100.0); MEAN CORPUSCULAR HEMOGLOBIN 31.8 PG (27.0-34.0); MEAN CORPUSCULAR HGB CONC 33.1 % (32.0-36.0); MONO % 9.3 % (0.0-8.0); PLATELET COUNT 194 TH/MM3 (150-450); RED BLOOD COUNT 4.54 MIL/MM3 (4.50-5.90); WHITE BLOOD COUNT 5.4 TH/MM3 (4.0-11.0)
[2016-08-07 08:00] VITALS: BP 121/73; PULSE 71; RESP 18; TEMP 98.2; O2SAT 97
[2016-08-07 08:23] LABS: BICARBONATE 31.5 MEQ/L (21.0-32.0); POTASSIUM 3.3 MEQ/L (3.5-5.1)
[2016-08-07] MEDS: SODIUM CHLORIDE 0.9% FLUSH 10 ML FLUSH IV FLUSH SCH ×2 (08:41→21:00)
[2016-08-07] MEDS: METHADONE HCL 10 MG TAB PO SCH (08:42)
[2016-08-07] MEDS: FUROSEMIDE 20 MG TAB PO SCH ×2 (08:42→17:52)
[2016-08-07] MEDS: ENOXAPARIN SODIUM 40 MG/0.4 ML SYRINGE SQ SCH (08:45)
[2016-08-07] MEDS ORDERED: POTASSIUM CHLORIDE 20 MEQ CONTROLLED RELEASE TAB PO ONE (09:30)
[2016-08-07 10:56] LABS: MAGNESIUM 1.9 MG/DL (1.5-2.5)
--- NOTE | 2016-08-07 10:59 | HHI.DS ---
Discharge Summary Admission Date Aug 06, 2016 at 00:15 Discharge Date: Aug 07, 2016 Admitting Diagnosis cellulitis, wound infection (1) Cellulitis ICD Code: L03.90 Diagnosis: Principal (2) Pruritus ICD Code: L29.9 Diagnosis: Principal Procedures none Brief History - From Admission Mr. Perez is seen in the CDU. He states he has a new right elbow wound and left ankle wound for the past year along with a chronic right ankle wound that has been present for many years. He states that they are infected and painful and these symptoms are severe and have progressively worsened despite 3-4 days of antibiotic treatment with Bactrim - states he go "considerably worse" despite treatment. Bilateral medial malleolus with large wounds - eschar on right, warm and red bilateral lower extremities with taut skin appearance. The patient is observed frequently scratching and complaining of generalized pruritus. He is also digging at right elbow wound at times during visit. Right elbow decubitus - quarter-sized. Denies fever, shortness of breath, chest pain. CBC/BMP: 08/07/16 0632 08/07/16 0632 Significant Findings Laboratory Tests Test 08/05/16 08/07/16 22:50 06:32 Red Blood Count 3.88 MIL/MM3 (4.50-5.90) Hemoglobin 12.3 GM/DL (13.0-17.0) Hematocrit 37.5 % (39.0-51.0) Monocytes (%) (Auto) 8.7 % (0.0-8.0) 9.3 % (0.0-8.0) Eosinophils (%) (Auto) 4.4 % (0.0-4.0) Erythrocyte Sedimentation Rate 33 mm/hr (0-20) Potassium Level 3.4 MEQ/L 3.3 MEQ/L (3.5-5.1) (3.5-5.1) Blood Urea Nitrogen 3 MG/DL (7-18) Random Glucose 117 MG/DL (74-106) C-Reactive Protein 2.66 MG/DL (0.00-0.30) Calcium Level 8.1 MG/DL (8.5-10.1) Imaging Last Impressions Lower Extremity Ultrasound 08/06/16 0000 Signed Impressions: Service Date/Time: Saturday, August 06, 2016 08:03 - CONCLUSION: Negative for deep venous thrombosis. Bilateral inguinal adenopathy. Gaurang Hopkins MD FACR PE at Discharge GENERAL: Well-developed well-nourished. In no acute distress. SKIN: Warm and dry. Right elbow with open ulceration with minimal surrounding erythema and no drainage. Bilateral lower extremities with Baldomero wraps in place. Multiple punctate areas of scabbing on the upper and lower extremities from scratching. HEENT: Normocephalic. Pupils equal and round. Mucous membranes pink and moist. CARDIOVASCULAR: Regular rate and rhythm. No murmur appreciated. RESPIRATORY: No accessory muscle use. Clear to auscultation. Breath sounds equal bilaterally. GASTROINTESTINAL: Abdomen soft, non-tender, nondistended. Bowel sounds x4. MUSCULOSKELETAL: Baldomero wraps for the knee. Some erythema from scratching on the thighs. 1+ lower extremity edema. NEUROLOGICAL: Awake and alert. No focal neurological deficits. Moves upper and lower extremities spontaneously. Normal speech. PSYCHIATRIC: Slightly anxious mood and affect; insight and judgment normal. Hospital Course 51-year-old male with a past medical history of hepatitis C, opiate abuse in the past, and chronic extremity wounds who presented for worsening of his wounds Cellulitis of chronic bilateral lower extremity wounds with failed outpatient therapy with Bactrim. Reviewed: Afebrile with no leukocytosis. Doppler negative for DVT. Previous wound cultures polymicrobial with multidrug resistant. - Received IV Zosyn and vancomycin pending results of wound cultures. Patient with pseudomonas aeruginosa, resistant to Levaquin. Patient will need IV abx. JAMILA hartmanno . ID specialist following.Discussed with Dr Danica BALDWIN. Consult vascular surgeon. Patient has a h.o ? PVD. - Vasc surgeon recommends CTA with a runoff - consulted podiatry/wound care, discussed with Dr. Keyes, recommended continuing IV antibiotics pending wound cultures, diuresis, and outpatient wound care. Appreciate recommendations. - Diuresis with oral Lasix. Additional potassium replacement. Monitor intake and output, documented as -4500 overnight. Renal function stable. Pruritus secondary to weeping edema - Atarax 25 mg q6h PRN pruritus History of IV opioid abuse - Continue home methadone DVT prophylaxis - Lovenox 40 mg subq q24h Discharge Planning Pending improvement and clearance for DC. Need IV abx. ID for abx recommendations at [place]. Vas surgeon recommends CTA with a runoff , which was normal , cleared by vasc surgeon DC on cefepime 4 mg for 7 days , pump to be placed in the morning at the transfusion center. Patient can follow-up in the [facility] with Dr. Molina. Pt Condition on Discharge: Stable Discharge Disposition: Disch w/ Home Health Serv Discharge Time: > 30 minutes Discharge Instructions DIET: Follow Instructions for: Heart Healthy Diet, Diabetic Diet Activities you can perform: Regular-No Restrictions Follow up Referrals: PCP Follow-up - 3-5 Days with Marga Molina MD New Medications: Cefepime Inj (Maxipime Inj) 2 Gm Inj 4 GM IV CONTINUOUS Infection Days 7 Ref 0 VIAL Epinephrine Inj (Epinephrine Inj) 1 Mg/Ml Inj 0.3 MG IV PUSH ONCE PRN ALLERGIC REACTION #1 VIAL Epinephrine Inj (Epinephrine Inj) 1 Mg/Ml Inj 0.3 MG SQ ONCE Give with any signs of respiratory distress. PRN ALLERGIC REACTION #1 VIAL Hydrocortisone Inj (Solu-Cortef Inj) 250 Mg Inj 250 MG IV PUSH ONCE Give over 30-60 seconds. PRN ALLERGIC REACTION #1 Ref 0 VIAL Vicenta Sloan MD Aug 07, 2016 10:59 Vicenta Sloan MD Aug 07, 2016 10:59 Vicenta Sloan MD Aug 07, 2016 10:59
--- NOTE | 2016-08-07 11:27 | HHI.PR ---
Subjective Remarks Follow-up for lower extremity wounds. The patient continues to complain of itching, although feels like it is improving some. He states the swelling and redness in his legs is still there, but is definitely improving. He did have some pain in his legs overnight which resolved. He reports good urine output with diuresis. He understands the need to follow-up for continued wound care. Objective Vitals Vital Signs Date Time Temp Pulse Resp B/P Pulse Ox O2 Delivery O2 Flow Rate FiO2 08/07/16 08:00 98.2 71 18 121/73 97 08/07/16 05:08 98.5 71 18 99/58 95 08/07/16 00:20 99.9 86 18 114/59 96 08/07/16 00:00 Room Air 08/06/16 21:49 98.7 70 18 105/72 96 08/06/16 20:00 Room Air 08/06/16 18:00 98.3 73 18 139/72 99 08/06/16 15:27 98.2 77 16 126/73 97 08/06/16 11:48 98.1 87 18 129/78 97 I/O 08/06/16 08/06/16 08/06/16 08/07/16 08/07/16 08/07/16 07:00 15:00 23:00 07:00 15:00 23:00 Intake Total 893 ml 450 ml Output Total 925 ml 4475 ml 440 ml Balance -925 ml -3582 ml 10 ml Intake Oral 480 ml 0 ml IV Total 413 ml 450 ml Output Urine Total 925 ml 4475 ml 440 ml # Bowel Movements 0 0 Result Diagram: 08/07/16 0632 08/07/16 0632 Objective Remarks GENERAL: Well-developed well-nourished. In no acute distress. SKIN: Warm and dry. Right elbow with open ulceration with minimal surrounding erythema and no drainage. Bilateral lower extremities with Baldomero wraps in place. Multiple punctate areas of scabbing on the upper and lower extremities from scratching. HEENT: Normocephalic. Pupils equal and round. Mucous membranes pink and moist. CARDIOVASCULAR: Regular rate and rhythm. No murmur appreciated. RESPIRATORY: No accessory muscle use. Clear to auscultation. Breath sounds equal bilaterally. GASTROINTESTINAL: Abdomen soft, non-tender, nondistended. Bowel sounds x4. MUSCULOSKELETAL: Baldomero wraps for the knee. Thigh erythema improved. Trace lower extremity edema. NEUROLOGICAL: Awake and alert. No focal neurological deficits. Moves upper and lower extremities spontaneously. Normal speech. PSYCHIATRIC: Slightly anxious mood and affect; insight and judgment normal. Procedures none A/P Problem List: (1) Cellulitis ICD Code: L03.90 Status: Acute (2) Pruritus ICD Code: L29.9 Status: Acute Assessment and Plan 51-year-old male with a past medical history of hepatitis C, opiate abuse in the past, and chronic extremity wounds who presented for worsening of his wounds Cellulitis of chronic bilateral lower extremity wounds with failed outpatient therapy with Bactrim. Reviewed: Afebrile with no leukocytosis. Doppler negative for DVT. Previous wound cultures polymicrobial with multidrug resistant. - IV Zosyn and vancomycin pending results of wound cultures. May need ID consult based on sensitivities. - consulted podiatry/wound care, discussed with Dr. Keyes, recommended continuing IV antibiotics pending wound cultures, diuresis, and outpatient wound care. Appreciate dressing recommendations. - Diuresis with oral Lasix. Additional potassium replacement. Monitor intake and output, documented as -4500 overnight. Renal function stable. Pruritus secondary to weeping edema - Atarax 25 mg q6h PRN pruritus History of IV opioid abuse - Continue home methadone DVT prophylaxis - Lovenox 40 mg subq q24h Discharge Planning Follow up results of wound cultures. Possible discharge planning if wounds are able to be treated with oral antibiotics. Problem Qualifiers (1) Cellulitis: Qualified Code: L03.116 - Cellulitis of left lower extremity Ish Aguero Aug 07, 2016 11:27
[2016-08-07] MEDS ORDERED: POTASSIUM CHLORIDE 10 MEQ CONTROLLED RELEASE TAB PO ONE (11:30)
[2016-08-07 12:00] VITALS: BP 131/81; PULSE 73; RESP 18; TEMP 97.5; O2SAT 97
--- NOTE | 2016-08-07 12:02 | PD.POD ---
Subjective Podiatric Problems Patient with bilateral venous stasis disease and ulcerations of the bilateral medial legs. Pain scale used: 0-10 numeric scale Pain score: 6 Remarks 51-year-old male with venous insufficiency and venous stasis ulcerations bilaterally. The right leg has a dry eschar. The left wound is open. Culture and sensitivities are pending. Patient was being seen in the wound center until he had an insurance change. Patient no longer has any insurance. His edema is down with the Baldomero bandage wraps. Past Med/Surg/Social History Past Medical History [facility] Reviewed: Yes Cardiovascular: REPORTS HX OF: Hypertension Infectious disease: REPORTS HX OF: Hepatitis (C) Psychiatric: REPORTS HX OF: Anxiety Past Surgical History Gastrointestinal: DENIES HX OF: Colectomy, total Social History Smoking Status: Former Smoker Review of Systems Notes Changes in his 14 point review of systems exam since he was seen yesterday Cardiovascular: COMPLAINS OF: Swelling legs / ankles Objective Vital Signs Vital Signs Date Time Temp Pulse Resp B/P Pulse Ox O2 Delivery O2 Flow Rate FiO2 08/07/16 08:00 98.2 71 18 121/73 97 08/07/16 05:08 98.5 71 18 99/58 95 08/07/16 00:20 99.9 86 18 114/59 96 08/07/16 00:00 Room Air 08/06/16 21:49 98.7 70 18 105/72 96 08/06/16 20:00 Room Air 08/06/16 18:00 98.3 73 18 139/72 99 08/06/16 15:27 98.2 77 16 126/73 97 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) Medications and IVs Current Medications Clindamycin Phosphate/Sodium Chloride (Cleocin Inj/NS Inj) 104 ml @ 208 mls/hr ONCE ONCE IV Last administered on 08/05/16t 23:34; Start 08/05/16 at 22:30; Stop 08/05/16 at 22:59; Status DC Sodium Chloride (NS Flush) 2 ml UNSCH PRN IV FLUSH FLUSH AFTER USING IV ACCESS ; Start 08/06/16 at 00:30; Stop 08/06/16 at 00:44; Status DC Sodium Chloride (NS Flush) 2 ml BID IV FLUSH ; Start 08/06/16 at 09:00; Stop at 09:00; Status DC Naloxone HCl (Narcan Inj) 0.4 mg UNSCH PRN IV SEE LABEL COMMENTS; Start at 00:30; Stop 08/06/16 at 00:45; Status DC Sodium Chloride (NS Flush) 2 ml UNSCH PRN IV FLUSH FLUSH AFTER USING IV ACCESS ; Start 08/06/16 at 00:15 Sodium Chloride (NS Flush) 2 ml BID IV FLUSH Last administered on 08/07/16 08: 41; Start 08/06/16 at 09:00 Naloxone HCl 0.4 mg 0.4 mg UNSCH PRN IV SEE LABEL COMMENTS; Start 08/06/16 at 00:15 Pharmacy Profile Note 0 ml @ 0 mls/hr UNSCH OTHER ; Start 08/06/16 at 00:45 Piperacillin Sod/ Tazobactam Sod (Zosyn 4.5 Gm Premix) 100 ml @ 200 mls/hr Q6H IV Last administered on 08/07/16 06:47; Start 08/06/16 at 01:00 Potassium Chloride 40 meq 40 meq ONCE ONCE PO Last administered on 08/06/16 01:05; Start 08/06/16 at 00:45; Stop 08/06/16 at 00:46; Status DC Vancomycin HCl/ Sodium Chloride (Vancomycin Inj/ NS 500 ml Inj) 517.5 ml @ 250 mls/hr ONCE ONCE IV Last administered on 08/06/16 02:16; Start 08/06/16 at 02 :00; Stop 08/06/16 at 04:04; Status DC Hydroxyzine HCl (Atarax) 25 mg Q6H PRN PO pruritus Last administered on 00:36; Start 08/06/16 at 05:15 Enoxaparin Sodium (Lovenox Inj) 40 mg Q24H SQ Last administered on 08/07/16 08 :45; Start 08/06/16 at 09:00 Methadone HCl 40 mg 40 mg DAILY PO Last administered on 08/07/16 08:42; Start 08/06/16 at 09:00 Vancomycin HCl/ Sodium Chloride (Vancomycin Inj/ NS 250 ml Inj) 262.5 ml @ 262.5 mls/ hr Q12H IV Last administered on 08/07/16 05:24; Start 08/06/16 at 18:00 Miscellaneous Information SPECIFIC LAB TO BE SHREYA... ONCE ONCE .XX ; Start 08/07 at 17:45; Stop 08/07/16 at 17:46 Furosemide (Lasix) 40 mg ONCE ONCE PO Last administered on 08/06/16 12:12; Start 08/06/16 at 12:00; Stop 08/06/16 at 13:45; Status DC Potassium Chloride (KCl) 20 meq ONCE ONCE PO Last administered on 08/06/16 12 :13; Start 08/06/16 at 12:00; Stop 08/06/16 at 13:45; Status DC Furosemide (Lasix) 20 mg BID@09,18 PO Last administered on 08/07/16 08:42; Start 08/06/16 at 18:00 Potassium Chloride (KCl) 20 meq ONCE ONCE PO Last administered on 08/06/16 15 :56; Start 08/06/16 at 15:30; Stop 08/06/16 at 15:31; Status DC Potassium Chloride (KCl) 40 meq ONCE ONCE PO ; Start 08/07/16 at 09:30; Stop at 09:31; Status Cancel Potassium Chloride (KCl) 30 meq ONCE ONCE PO Last administered on 08/07/16 11 :27; Start 08/07/16 at 11:30; Stop 08/07/16 at 11:31; Status DC Other Results Laboratory Tests Test 08/05/16 08/07/16 22:50 06:32 White Blood Count 5.8 TH/MM3 5.4 TH/MM3 Red Blood Count 3.88 MIL/MM3 4.54 MIL/MM3 Hemoglobin 12.3 GM/DL 14.4 GM/DL Hematocrit 37.5 % 43.6 % Mean Corpuscular Volume 96.5 FL 95.9 FL Mean Corpuscular Hemoglobin 31.8 PG 31.8 PG Mean Corpuscular Hemoglobin 32.9 % 33.1 % Concent Red Cell Distribution Width 12.5 % 13.0 % Platelet Count 184 TH/MM3 194 TH/MM3 Mean Platelet Volume 7.7 FL 8.4 FL Neutrophils (%) (Auto) 65.3 % 61.0 % Lymphocytes (%) (Auto) 21.2 % 25.4 % Monocytes (%) (Auto) 8.7 % 9.3 % Eosinophils (%) (Auto) 4.4 % 3.3 % Basophils (%) (Auto) 0.4 % 1.0 % Neutrophils # (Auto) 3.8 TH/MM3 3.3 TH/MM3 Lymphocytes # (Auto) 1.2 TH/MM3 1.4 TH/MM3 Monocytes # (Auto) 0.5 TH/MM3 0.5 TH/MM3 Eosinophils # (Auto) 0.3 TH/MM3 0.2 TH/MM3 Basophils # (Auto) 0.0 TH/MM3 0.1 TH/MM3 CBC Comment DIFF FINAL DIFF FINAL Differential Comment Erythrocyte Sedimentation Rate 33 mm/hr Laboratory Tests Test 08/05/16 08/07/16 22:50 06:32 Sodium Level 143 MEQ/L 139 MEQ/L Potassium Level 3.4 MEQ/L 3.3 MEQ/L Chloride Level 107 MEQ/L 100 MEQ/L Carbon Dioxide Level 29.2 MEQ/L 31.5 MEQ/L Anion Gap 7 MEQ/L 8 MEQ/L Blood Urea Nitrogen 3 MG/DL 8 MG/DL Creatinine 0.70 MG/DL 0.81 MG/DL Estimat Glomerular Filtration 119 ML/MIN 100 ML/MIN Rate Random Glucose 117 MG/DL 90 MG/DL Calcium Level 8.5 MG/DL 8.1 MG/DL C-Reactive Protein 2.66 MG/DL Magnesium Level 1.9 MG/DL Microbiology Date/Time Procedure Status Source Growth 08/06/16 00:29 Gram Stain - Final Resulted Wound Leg 08/06/16 00:29 Wound Culture Resulted Wound Leg Pending 08/06/16 00:29 Gram Stain - Final Resulted Wound Leg 08/06/16 00:29 Wound Culture Resulted Wound Leg Pending Exam-Podiatry Constitutional General appearance: comfortable Nutritional status: normal Orientation: alert and oriented x3 Dermatological Exam Skin Temp - Right: Within Normal Limits Skin Texture - Right: Within Normal Limits Skin Elasticity - Right: Within Normal Limits Skin Tugor - Right: Within Normal Limits Hair Growth - Right: Within Normal Limits Pigmentation - Right: Within Normal Limits Skin Temp - Left: Within Normal Limits Skin Texture - Left: Within Normal Limits Skin Elasticity - Left: Within Normal Limits Skin Tugor - Left: Within Normal Limits Hair Growth - Left: Within Normal Limits Pigmentation - Left: Within Normal Limits Ulcers: Location/Measurements Bilateral medial leg ulcers. The ulcer on the right leg is dry with eschar. Ulceration left medial leg open down to muscle. Vascular/Lymphatic Exam R Dorsails Pedis: Palpable L Dorsails Pedis: Palpable R Posterior Tibial: Palpable L Posterior Tibial: Palpable Neurologic Exam Details No neurological deficits seen Muscle Strength Dorsiflexion (Right): Normal Plantarflexion (Right): Normal Inversion (Right): Normal Eversion (Right): Normal Digital (Right): Normal Dorsiflexion (Left): Normal Plantarflexion (Left): Normal Inversion (Left): Normal Eversion (Left): Normal Digital (Left): Normal Foot Range of Motion Dorsiflexion (Right): Normal Plantarflexion (Right): Normal Inversion (Right): Normal Eversion (Right): Normal Digital (Right): Normal Dorsiflexion (Left): Normal Plantarflexion (Left): Normal Inversion (Left): Normal Eversion (Left): Normal Digital (Left): Normal Extremities Edema: Left lower extremity: 1+, pitting, ankle, leg Right lower extremity: 1+, pitting, ankle, leg Assessment & Plan Diagnosis: (1) Venous insufficiency of right leg Status: Acute (2) Venous hypertension, chronic, with ulcer Status: Chronic Problem Qualifiers (1) Venous hypertension, chronic, with ulcer: Qualified Code: I87.313 - Venous hypertension, chronic, with ulcer, bilateral Saad Keyes DPM Aug 07, 2016 12:02
--- NOTE | 2016-08-07 13:16 | HHI.PR ---
Subjective Remarks Patient is complaining of pain in his left heel. Says she was not able to ambulate. Redness improved. No n/v/d/c. He has chills, no fevers. Seen by Dr Keyes wound care. Patient has dressing changes. Patient says pain is better after dressing change today by podiatry. Objective Vitals Vital Signs Date Time Temp Pulse Resp B/P Pulse Ox O2 Delivery O2 Flow Rate FiO2 08/07/16 12:00 97.5 73 18 131/81 97 08/07/16 08:00 98.2 71 18 121/73 97 08/07/16 07:15 Room Air 08/07/16 05:08 98.5 71 18 99/58 95 08/07/16 00:20 99.9 86 18 114/59 96 08/07/16 00:00 Room Air 08/06/16 21:49 98.7 70 18 105/72 96 08/06/16 20:00 Room Air 08/06/16 18:00 98.3 73 18 139/72 99 08/06/16 15:27 98.2 77 16 126/73 97 I/O 08/06/16 08/06/16 08/06/16 08/07/16 08/07/16 08/07/16 07:00 15:00 23:00 07:00 15:00 23:00 Intake Total 893 ml 450 ml Output Total 925 ml 4475 ml 440 ml Balance -925 ml -3582 ml 10 ml Intake Oral 480 ml 0 ml IV Total 413 ml 450 ml Output Urine Total 925 ml 4475 ml 440 ml # Bowel Movements 0 0 Result Diagram: 08/07/16 0632 08/07/16 0632 Imaging Last Impressions Lower Extremity Ultrasound 08/06/16 0000 Signed Impressions: Service Date/Time: Saturday, August 06, 2016 08:03 - CONCLUSION: Negative for deep venous thrombosis. Bilateral inguinal adenopathy. Gaurang Hopkins MD FACR Objective Remarks GENERAL: Well-developed well-nourished. In no acute distress. SKIN: Warm and dry. Right elbow with open ulceration with minimal surrounding erythema and no drainage. Bilateral lower extremities with Baldomero wraps in place. Erythema extending. Multiple punctate areas of scabbing on the upper and lower extremities from scratching. HEENT: Normocephalic. Pupils equal and round. Mucous membranes pink and moist. CARDIOVASCULAR: Regular rate and rhythm. No murmur appreciated. RESPIRATORY: No accessory muscle use. Clear to auscultation. Breath sounds equal bilaterally. GASTROINTESTINAL: Abdomen soft, non-tender, nondistended. Bowel sounds x4. MUSCULOSKELETAL: Baldomero wraps for the knee. Thigh erythema improved. Trace lower extremity edema. NEUROLOGICAL: Awake and alert. No focal neurological deficits. Moves upper and lower extremities spontaneously. Normal speech. PSYCHIATRIC: Slightly anxious mood and affect; insight and judgment normal. Procedures none A/P Problem List: (1) Cellulitis ICD Code: L03.90 Status: Acute (2) Pruritus ICD Code: L29.9 Status: Acute Assessment and Plan 51-year-old male with a past medical history of hepatitis C, opiate abuse in the past, and chronic extremity wounds who presented for worsening of his wounds Cellulitis of chronic bilateral lower extremity wounds with failed outpatient therapy with Bactrim. Reviewed: Afebrile with no leukocytosis. Doppler negative for DVT. Previous wound cultures polymicrobial with multidrug resistant. - IV Zosyn and vancomycin pending results of wound cultures. Will consult ID for abx recommendations and abx at [facility]. - consulted podiatry/wound care, discussed with Dr. Keyes, recommended continuing IV antibiotics pending wound cultures, diuresis, and outpatient wound care. Appreciate dressing recommendations. - Diuresis with oral Lasix. Additional potassium replacement. Monitor intake and output, documented as -4500 overnight. Renal function stable. Pruritus secondary to weeping edema - Atarax 25 mg q6h PRN pruritus History of IV opioid abuse - Continue home methadone DVT prophylaxis - Lovenox 40 mg subq q24h Discharge Planning Follow up results of wound cultures. Patient with extensive BL cellulitis, will consult ID for abx recommendations inpatient and at [facility]. Problem Qualifiers (1) Cellulitis: Qualified Code: L03.116 - Cellulitis of left lower extremity Vicenta Sloan MD Aug 07, 2016 13:16
[2016-08-07 16:00] VITALS: BP 116/69; PULSE 70; RESP 18; TEMP 97; O2SAT 98
[2016-08-07] MEDS ORDERED: PHARMACY ORDERED LAB ONE (17:45)
[2016-08-07 20:00] VITALS: BP 124/63; PULSE 85; RESP 18; TEMP 98.1; O2SAT 100
[2016-08-08] VITALS: BP 119/60; PULSE 77; RESP 18; TEMP 98.5; O2SAT 98
[2016-08-08] MEDS: PIPERACIL-TAZO 4.5 GM PREMIX 100 ML IV SCH ×4 (00:52→19:00)
[2016-08-08] MEDS: VANCOMYCIN INJ 1,250 MG in SODIUM CHLOR 0.9% 250 ML INJ 250 ML IV SCH ×2 (05:29→18:07)
[2016-08-08 06:00] VITALS: BP 97/61; PULSE 75; RESP 18; TEMP 98; O2SAT 95
[2016-08-08 08:00] VITALS: BP 111/61; PULSE 70; RESP 18; TEMP 98; O2SAT 99
[2016-08-08] MEDS: METHADONE HCL 10 MG TAB PO SCH (08:39)
[2016-08-08] MEDS: SODIUM CHLORIDE 0.9% FLUSH 10 ML FLUSH IV FLUSH SCH ×2 (08:39→20:29)
[2016-08-08] MEDS: FUROSEMIDE 20 MG TAB PO SCH ×2 (08:40→18:08)
[2016-08-08] MEDS: ENOXAPARIN SODIUM 40 MG/0.4 ML SYRINGE SQ SCH (08:43)
--- NOTE | 2016-08-08 10:26 | PD.POD ---
Subjective Podiatric Problems Patient with bilateral venous stasis disease and ulcerations of the bilateral medial legs. Pain scale used: 0-10 numeric scale Pain score: 6 Remarks 51-year-old male with venous insufficiency and venous stasis ulcerations bilaterally. The right leg has a dry eschar. The left wound is open. Culture and sensitivities show Pseudomonas species. Patient was being seen in the wound center until he had an insurance change. Patient no longer has any insurance. His edema is down with the Baldomero bandage wraps. Past Med/Surg/Social History Past Medical History [facility] Reviewed: Yes Cardiovascular: REPORTS HX OF: Hypertension Infectious disease: REPORTS HX OF: Hepatitis (C) Psychiatric: REPORTS HX OF: Anxiety Past Surgical History Gastrointestinal: DENIES HX OF: Colectomy, total Social History Smoking Status: Former Smoker Review of Systems Notes No changes in his 14 point review of systems exam since his previous visit Objective Vital Signs Vital Signs Date Time Temp Pulse Resp B/P Pulse Ox O2 Delivery O2 Flow Rate FiO2 08/08/16 08:00 98.0 70 18 111/61 99 08/08/16 06:00 98.0 75 18 97/61 95 08/08/16 04:00 Room Air 08/08/16 00:00 98.5 77 18 119/60 98 08/08/16 00:00 Room Air 08/07/16 20:00 98.1 85 18 124/63 100 08/07/16 20:00 Room Air 08/07/16 16:00 97.0 70 18 116/69 98 08/07/16 12:00 97.5 73 18 131/81 97 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) Medications and IVs Current Medications Clindamycin Phosphate/Sodium Chloride (Cleocin Inj/NS Inj) 104 ml @ 208 mls/hr ONCE ONCE IV Last administered on 08/05/16t 23:34; Start 08/05/16 at 22:30; Stop 08/05/16 at 22:59; Status DC Sodium Chloride (NS Flush) 2 ml UNSCH PRN IV FLUSH FLUSH AFTER USING IV ACCESS ; Start 08/06/16 at 00:30; Stop 08/06/16 at 00:44; Status DC Sodium Chloride (NS Flush) 2 ml BID IV FLUSH ; Start 08/06/16 at 09:00; Stop at 09:00; Status DC Naloxone HCl (Narcan Inj) 0.4 mg UNSCH PRN IV SEE LABEL COMMENTS; Start at 00:30; Stop 08/06/16 at 00:45; Status DC Sodium Chloride (NS Flush) 2 ml UNSCH PRN IV FLUSH FLUSH AFTER USING IV ACCESS ; Start 08/06/16 at 00:15 Sodium Chloride (NS Flush) 2 ml BID IV FLUSH Last administered on 08/08/16 08: 39; Start 08/06/16 at 09:00 Naloxone HCl 0.4 mg 0.4 mg UNSCH PRN IV SEE LABEL COMMENTS; Start 08/06/16 at 00:15 Pharmacy Profile Note 0 ml @ 0 mls/hr UNSCH OTHER ; Start 08/06/16 at 00:45 Piperacillin Sod/ Tazobactam Sod (Zosyn 4.5 Gm Premix) 100 ml @ 200 mls/hr Q6H IV Last administered on 08/08/16 06:42; Start 08/06/16 at 01:00 Potassium Chloride 40 meq 40 meq ONCE ONCE PO Last administered on 08/06/16 01:05; Start 08/06/16 at 00:45; Stop 08/06/16 at 00:46; Status DC Vancomycin HCl/ Sodium Chloride (Vancomycin Inj/ NS 500 ml Inj) 517.5 ml @ 250 mls/hr ONCE ONCE IV Last administered on 08/06/16 02:16; Start 08/06/16 at 02 :00; Stop 08/06/16 at 04:04; Status DC Hydroxyzine HCl (Atarax) 25 mg Q6H PRN PO pruritus Last administered on 00:36; Start 08/06/16 at 05:15 Enoxaparin Sodium (Lovenox Inj) 40 mg Q24H SQ Last administered on 08/08/16 08 :43; Start 08/06/16 at 09:00 Methadone HCl 40 mg 40 mg DAILY PO Last administered on 08/08/16 08:39; Start 08/06/16 at 09:00 Vancomycin HCl/ Sodium Chloride (Vancomycin Inj/ NS 250 ml Inj) 262.5 ml @ 262.5 mls/ hr Q12H IV Last administered on 08/08/16 05:29; Start 08/06/16 at 18:00 Miscellaneous Information SPECIFIC LAB TO BE .. ONCE ONCE .XX Last administered on 08/07/16 17:28; Start 08/07/16 at 17:45; Stop 08/07/16 at 17:46 ; Status DC Furosemide (Lasix) 40 mg ONCE ONCE PO Last administered on 08/06/16 12:12; Start 08/06/16 at 12:00; Stop 08/06/16 at 13:45; Status DC Potassium Chloride (KCl) 20 meq ONCE ONCE PO Last administered on 08/06/16 12 :13; Start 08/06/16 at 12:00; Stop 08/06/16 at 13:45; Status DC Furosemide (Lasix) 20 mg BID@09,18 PO Last administered on 08/08/16 08:40; Start 08/06/16 at 18:00 Potassium Chloride (KCl) 20 meq ONCE ONCE PO Last administered on 08/06/16 15 :56; Start 08/06/16 at 15:30; Stop 08/06/16 at 15:31; Status DC Potassium Chloride (KCl) 40 meq ONCE ONCE PO ; Start 08/07/16 at 09:30; Stop at 09:31; Status Cancel Potassium Chloride (KCl) 30 meq ONCE ONCE PO Last administered on 08/07/16 11 :27; Start 08/07/16 at 11:30; Stop 08/07/16 at 11:31; Status DC Miscellaneous Information SPECIFIC LAB TO BE DRAWN:VANCO TROUGH DATE TO BE ONCE ONCE .XX ; Start 08/09/16 at 05:45; Stop 08/09/16 at 05:46 Other Results Laboratory Tests Test 08/07/16 06:32 White Blood Count 5.4 TH/MM3 Red Blood Count 4.54 MIL/MM3 Hemoglobin 14.4 GM/DL Hematocrit 43.6 % Mean Corpuscular Volume 95.9 FL Mean Corpuscular Hemoglobin 31.8 PG Mean Corpuscular Hemoglobin 33.1 % Concent Red Cell Distribution Width 13.0 % Platelet Count 194 TH/MM3 Mean Platelet Volume 8.4 FL Neutrophils (%) (Auto) 61.0 % Lymphocytes (%) (Auto) 25.4 % Monocytes (%) (Auto) 9.3 % Eosinophils (%) (Auto) 3.3 % Basophils (%) (Auto) 1.0 % Neutrophils # (Auto) 3.3 TH/MM3 Lymphocytes # (Auto) 1.4 TH/MM3 Monocytes # (Auto) 0.5 TH/MM3 Eosinophils # (Auto) 0.2 TH/MM3 Basophils # (Auto) 0.1 TH/MM3 CBC Comment DIFF FINAL Differential Comment Laboratory Tests Test 08/07/16 06:32 Sodium Level 139 MEQ/L Potassium Level 3.3 MEQ/L Chloride Level 100 MEQ/L Carbon Dioxide Level 31.5 MEQ/L Anion Gap 8 MEQ/L Blood Urea Nitrogen 8 MG/DL Creatinine 0.81 MG/DL Estimat Glomerular Filtration 100 ML/MIN Rate Random Glucose 90 MG/DL Calcium Level 8.1 MG/DL Magnesium Level 1.9 MG/DL Microbiology Date/Time Procedure Status Source Growth 08/06/16 00:29 Gram Stain - Final Resulted Wound Leg 08/06/16 00:29 Wound Culture - Preliminary Resulted Pseudomonas Species 08/06/16 00:29 Gram Stain - Final Resulted Wound Leg 08/06/16 00:29 Wound Culture - Preliminary Resulted Pseudomonas Species Exam-Podiatry Constitutional General appearance: comfortable Nutritional status: normal Orientation: alert and oriented x3 Dermatological Exam Skin Temp - Right: Within Normal Limits Skin Texture - Right: Within Normal Limits Skin Elasticity - Right: Within Normal Limits Skin Tugor - Right: Within Normal Limits Hair Growth - Right: Within Normal Limits Pigmentation - Right: Within Normal Limits Skin Temp - Left: Within Normal Limits Skin Texture - Left: Within Normal Limits Skin Elasticity - Left: Within Normal Limits Skin Tugor - Left: Within Normal Limits Hair Growth - Left: Within Normal Limits Pigmentation - Left: Within Normal Limits Ulcers: Location/Measurements Ulcerations bilateral medial legs. Ulceration on right has dry eschar. Ulceration left is open full-thickness down to muscle. His edema is down Vascular/Lymphatic Exam R Dorsails Pedis: Palpable L Dorsails Pedis: Palpable R Posterior Tibial: Palpable L Posterior Tibial: Palpable Neurologic Exam Details No neurological deficits seen Muscle Strength Dorsiflexion (Right): Normal Plantarflexion (Right): Normal Inversion (Right): Normal Eversion (Right): Normal Digital (Right): Normal Dorsiflexion (Left): Normal Plantarflexion (Left): Normal Inversion (Left): Normal Eversion (Left): Normal Digital (Left): Normal Foot Range of Motion Dorsiflexion (Right): Normal Plantarflexion (Right): Normal Inversion (Right): Normal Eversion (Right): Normal Digital (Right): Normal Dorsiflexion (Left): Normal Plantarflexion (Left): Normal Inversion (Left): Normal Eversion (Left): Normal Digital (Left): Normal Assessment & Plan Diagnosis: (1) Venous insufficiency of right leg Status: Acute (2) Venous hypertension, chronic, with ulcer Status: Chronic A/P PLAN: Await final sensitivities. If the Pseudomonas can be treated with Levaquin he can be discharged to follow-up with Dr. Molina. The patient requires IV antibiotics this will have to be arranged to the hospital. Discussed with Dr. Sloan Problem Qualifiers (1) Venous hypertension, chronic, with ulcer: Qualified Code: I87.313 - Venous hypertension, chronic, with ulcer, bilateral Saad Keyes DPM Aug 08, 2016 10:26
--- NOTE | 2016-08-08 11:18 | HHI.PR ---
Subjective Remarks In bed. Erythema is improving. Pain is better controlled. No n/v/d/c. Objective Vitals Vital Signs Date Time Temp Pulse Resp B/P Pulse Ox O2 Delivery O2 Flow Rate FiO2 08/08/16 08:00 98.0 70 18 111/61 99 08/08/16 06:00 98.0 75 18 97/61 95 08/08/16 04:00 Room Air 08/08/16 00:00 98.5 77 18 119/60 98 08/08/16 00:00 Room Air 08/07/16 20:00 98.1 85 18 124/63 100 08/07/16 20:00 Room Air 08/07/16 16:00 97.0 70 18 116/69 98 08/07/16 12:00 97.5 73 18 131/81 97 I/O 08/07/16 08/07/16 08/07/16 08/08/16 08/08/16 08/08/16 07:00 15:00 23:00 07:00 15:00 23:00 Intake Total 450 ml 584 ml Output Total 440 ml 1000 ml 350 ml 1250 ml Balance 10 ml -416 ml -350 ml -1250 ml Intake Oral 0 ml 480 ml IV Total 450 ml 104 ml Output Urine Total 440 ml 1000 ml 350 ml 1250 ml # Bowel Movements 0 1 0 0 Result Diagram: 08/07/16 0632 08/07/16 0632 Imaging Last Impressions Lower Extremity Ultrasound 08/06/16 0000 Signed Impressions: Service Date/Time: Saturday, August 06, 2016 08:03 - CONCLUSION: Negative for deep venous thrombosis. Bilateral inguinal adenopathy. Gaurang Hopkins MD FACR Objective Remarks GENERAL: Well-developed well-nourished. In no acute distress. SKIN: Warm and dry. Right elbow with open ulceration with minimal surrounding erythema and no drainage. Bilateral lower extremities with Baldomero wraps in place. Erythema extending. Multiple punctate areas of scabbing on the upper and lower extremities from scratching. HEENT: Normocephalic. Pupils equal and round. Mucous membranes pink and moist. CARDIOVASCULAR: Regular rate and rhythm. No murmur appreciated. RESPIRATORY: No accessory muscle use. Clear to auscultation. Breath sounds equal bilaterally. GASTROINTESTINAL: Abdomen soft, non-tender, nondistended. Bowel sounds x4. MUSCULOSKELETAL: Baldomero wraps for the knee. Thigh erythema improved. Trace lower extremity edema. NEUROLOGICAL: Awake and alert. No focal neurological deficits. Moves upper and lower extremities spontaneously. Normal speech. PSYCHIATRIC: Slightly anxious mood and affect; insight and judgment normal. Procedures none A/P Problem List: (1) Cellulitis ICD Code: L03.90 Status: Acute (2) Pruritus ICD Code: L29.9 Status: Acute Assessment and Plan 51-year-old male with a past medical history of hepatitis C, opiate abuse in the past, and chronic extremity wounds who presented for worsening of his wounds Cellulitis of chronic bilateral lower extremity wounds with failed outpatient therapy with Bactrim. Reviewed: Afebrile with no leukocytosis. Doppler negative for DVT. Previous wound cultures polymicrobial with multidrug resistant. - Received IV Zosyn and vancomycin pending results of wound cultures. Patient with pseudomonas aeruginosa, resistant to Levaquin. Patient will need IV abx. DC vanco . ID specialist following.Discussed with Dr Danica BALDWIN. Consult vascular surgeon. Patient has a h.o PVD. - consulted podiatry/wound care, discussed with Dr. Keyes, recommended continuing IV antibiotics pending wound cultures, diuresis, and outpatient wound care. Appreciate recommendations. - Diuresis with oral Lasix. Additional potassium replacement. Monitor intake and output, documented as -4500 overnight. Renal function stable. Pruritus secondary to weeping edema - Atarax 25 mg q6h PRN pruritus History of IV opioid abuse - Continue home methadone DVT prophylaxis - Lovenox 40 mg subq q24h Discharge Planning Pending improvement and clearance for DC. Need IV abx. ID for abx recommendations at [place]. [facility] surgeon to stephanie Discussed with the patient, nurse, Dr Danica BALDWIN, Dr Keyes podiatry Problem Qualifiers (1) Cellulitis: Qualified Code: L03.116 - Cellulitis of left lower extremity Vicenta Sloan MD Aug 08, 2016 11:17
[2016-08-08 12:00] VITALS: BP 114/63; PULSE 75; RESP 18; TEMP 97.9; O2SAT 95
[2016-08-08 12:10] LABS: BICARBONATE 29.1 MEQ/L (21.0-32.0); POTASSIUM 4.2 MEQ/L (3.5-5.1)
[2016-08-08 16:00] VITALS: BP 104/75; PULSE 84; RESP 18; TEMP 98.4; O2SAT 97
--- NOTE | 2016-08-08 18:09 | PD.ID.CON ---
History of Present Illness Service ID Consult Requested By Dr Sloan Reason for Consult BLE infected wounds, PSAE Primary Care Physician Skinny Boo Diagnoses: History of Present Illness 51 M c chronic venostasis, poor historia, is dealing wih b/l medial malelous ulcers He presented with significant LLE erthema spreading up the thigh Clx from both ulcer + PSAE Review of Systems Except as stated in HPI: all other systems reviewed are Neg Past Family Social History Allergies: 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 Active Ordered Medications Medications where reviewed in EMR Antibiotics Include: zosyn vancomycoin Family History Non-Contributory. Social History Tobacco: denies; quit smoking 1995 - smoked for 10 years Alcohol: denies Illicit drugs: former IV opioid addiction Physical Exam Vital Signs Vital Signs Date Time Temp Pulse Resp B/P Pulse Ox O2 Delivery O2 Flow Rate FiO2 08/08/16 16:00 98.4 84 18 104/75 97 08/08/16 12:00 97.9 75 18 114/63 95 08/08/16 08:00 98.0 70 18 111/61 99 08/08/16 07:15 Room Air 08/08/16 06:00 98.0 75 18 97/61 95 08/08/16 04:00 Room Air 08/08/16 00:00 98.5 77 18 119/60 98 08/08/16 00:00 Room Air 08/07/16 20:00 98.1 85 18 124/63 100 08/07/16 20:00 Room Air Physical Exam CONSTITUTIONAL/GENERAL: This is an adequately nourished patient, in no apparent distress. TUBES/LINES/DRAINS: R IJ CVC in place wo e/o infx SKIN: No jaundice, rashes, or lesions. Skin temperature appropriate. Not diaphoretic. HEAD: Atraumatic. Normocephalic. EYES: Pupils equal and round and reactive. Extraocular motions intact. No scleral icterus. No injection or drainage. Fundi not examined. ENT: Hearing grossly normal. Nose without bleeding or purulent drainage. Throat without visible erythema, exudates, masses, or lesions. NECK: Trachea midline. Supple, nontender. CARDIOVASCULAR: Regular rate and rhythm without murmurs, gallops, or rubs. No JVD. Peripheral pulses symmetric. RESPIRATORY/CHEST: Symmetric, unlabored respirations. Clear to auscultation. Breath sounds equal bilaterally. No wheezes, rales, or rhonchi. GASTROINTESTINAL: Abdomen soft, non-tender, nondistended. No hepato-splenomegaly , or palpable masses. No guarding. Bowel sounds present. GENITOURINARY: Without palpable bladder distension. MUSCULOSKELETAL: Extremities without clubbing, cyanosis, or edema. No joint tenderness or effusion noted. No calf tenderness. No mottling or clubbing. Chronic hyperpigmentation b/l LE R medial malelous ulcer with ulcer with dry black eschar STATUS LOCALIS: L medial malelous ulkcer with odor lessserosag d/c; open, + erythema, up to the knee, not much edema + lymphangits, tender erthemaous thigh B/l prominent inguinal lympahdenopathy LYMPHATICS: No palpable cervical or supraclavicular adenopathy.B/l prominent inguinal lympahdenopathy NEUROLOGICAL: Awake and alert. Motor and sensory grossly within normal limits. Follows commands. Clear speech. Moves all extremities. PSYCHIATRIC: No obvious anxiety/depression. no apparent hallucinations or other psychotic thought process. Laboratory Laboratory Tests Test 08/08/16 11:03 Sodium Level 135 Potassium Level 4.2 Chloride Level 98 Carbon Dioxide Level 29.1 Anion Gap 8 Blood Urea Nitrogen 12 Creatinine 0.95 Estimat Glomerular Filtration 84 Rate Random Glucose 117 Calcium Level 9.5 Date/Time Procedure Status Source Growth 08/06/16 00:29 Gram Stain - Final Complete Wound Leg 08/06/16 00:29 Wound Culture - Final Complete Pseudomonas Aeruginosa Result Diagram: 08/07/16 0632 08/08/16 1103 Imaging Last Impressions Lower Extremity Ultrasound 08/06/16 0000 Signed Impressions: Service Date/Time: Saturday, August 06, 2016 08:03 - CONCLUSION: Negative for deep venous thrombosis. Bilateral inguinal adenopathy. Gaurang Hopkins MD FACR Assessment and Plan Assessment and Plan Venous insufficiency and venous stasis ulcerations bilaterally LLE cellulitis, lymphagitis, port of entry L foot chronic venostasis ulcer PSAE in the ulceration cont cullertn abx - fu clx Kathi Ceja MD Aug 08, 2016 18:09
[2016-08-08 21:00] VITALS: BP 109/57; PULSE 79; RESP 16; TEMP 98.2; O2SAT 100
[2016-08-09] VITALS: BP 110/60; PULSE 80; RESP 17; TEMP 98.1; O2SAT 100
[2016-08-09] MEDS: PIPERACIL-TAZO 4.5 GM PREMIX 100 ML IV SCH ×4 (00:36→16:54)
[2016-08-09 04:00] VITALS: BP 112/58; PULSE 88; RESP 20; TEMP 97.9; O2SAT 100
[2016-08-09] MEDS: VANCOMYCIN INJ 1,250 MG in SODIUM CHLOR 0.9% 250 ML INJ 250 ML IV SCH ×2 (05:36→16:54)
[2016-08-09] MEDS ORDERED: PHARMACY ORDERED LAB ONE (05:45)
[2016-08-09 08:00] VITALS: BP 98/65; PULSE 75; RESP 18; TEMP 98; O2SAT 97
[2016-08-09] MEDS: FUROSEMIDE 20 MG TAB PO SCH ×2 (08:18→16:53)
[2016-08-09] MEDS: ENOXAPARIN SODIUM 40 MG/0.4 ML SYRINGE SQ SCH (08:18)
[2016-08-09] MEDS: METHADONE HCL 10 MG TAB PO SCH (08:18)
[2016-08-09] MEDS: SODIUM CHLORIDE 0.9% FLUSH 10 ML FLUSH IV FLUSH SCH ×2 (08:19→21:25)
[2016-08-09 12:00] VITALS: BP 110/65; PULSE 74; RESP 18; TEMP 97.8; O2SAT 95
[2016-08-09 16:00] VITALS: BP 127/66; PULSE 77; RESP 18; TEMP 98.2; O2SAT 94
--- NOTE | 2016-08-09 16:05 | HHI.IDPN ---
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 Vital Signs Date Time Temp Pulse Resp B/P Pulse Ox O2 Delivery O2 Flow Rate FiO2 08/09/16 12:00 97.8 74 18 110/65 95 08/09/16 08:40 Room Air 08/09/16 08:00 98.0 75 18 98/65 97 08/09/16 04:00 97.9 88 20 112/58 100 08/09/16 04:00 Room Air 08/09/16 00:00 Room Air 08/09/16 00:00 98.1 80 17 110/60 100 08/08/16 21:00 98.2 79 16 109/57 100 08/08/16 20:00 Room Air 08/08/16 16:00 98.4 84 18 104/75 97 08/08/16 08/08/16 08/09/16 15:00 23:00 07:00 Intake Total 1060 ml 1050 ml 400 ml Output Total 1400 ml 1000 ml Balance -340 ml 1050 ml -600 ml Intake Oral 960 ml 1050 ml 400 ml IV Total 100 ml Output Urine Total 1400 ml 1000 ml # Voids 1 # Bowel Movements 1 0 0 . Laboratory Tests Test 08/08/16 11:03 Sodium Level 135 MEQ/L Potassium Level 4.2 MEQ/L Chloride Level 98 MEQ/L Carbon Dioxide Level 29.1 MEQ/L Anion Gap 8 MEQ/L Blood Urea Nitrogen 12 MG/DL Creatinine 0.95 MG/DL Estimat Glomerular Filtration 84 ML/MIN Rate Random Glucose 117 MG/DL Calcium Level 9.5 MG/DL Imaging Last Impressions Lower Extremity Ultrasound 08/06/16 0000 Signed Impressions: Service Date/Time: Saturday, August 06, 2016 08:03 - CONCLUSION: Negative for deep venous thrombosis. Bilateral inguinal adenopathy. Gaurang Hopkins MD FACR Physical Exam CONSTITUTIONAL/GENERAL: This is an adequately nourished patient, in no apparent distress. TUBES/LINES/DRAINS: R IJ CVC in place wo e/o infx SKIN: No jaundice, rashes, or lesions. Skin temperature appropriate. Not diaphoretic. CARDIOVASCULAR: Regular rate and rhythm without murmurs, gallops, or rubs. No JVD. Peripheral pulses symmetric. RESPIRATORY/CHEST: Symmetric, unlabored respirations. Clear to auscultation. Breath sounds equal bilaterally. No wheezes, rales, or rhonchi. GASTROINTESTINAL: Abdomen soft, non-tender, nondistended. No hepato-splenomegaly , or palpable masses. No guarding. Bowel sounds present. MUSCULOSKELETAL: Extremities without clubbing, cyanosis, or edema. No joint tenderness or effusion noted. No calf tenderness. No mottling or clubbing. Chronic hyperpigmentation b/l LE b/l LE with dressing isn in place + erythema, up to the knee, not much edema- improved + lymphangits, tender erthemaous thigh - improved B/l prominent inguinal lympahdenopathy NEUROLOGICAL: Awake and alert. Non focal PSYCHIATRIC: No obvious anxiety/depression. no apparent hallucinations or other psychotic thought process. Assessment & Plan Remarks Venous insufficiency and venous stasis ulcerations bilaterally ? underlying arterial insufficiency LLE cellulitis, lymphagitis, port of entry L foot chronic venostasis ulcer PSAE in the ulceration lay mckeon start cefepime - PICC - anticipate IV abx x 10 more days(no po options ) - vasc consult dw Cassandra Black and Nathalia pearl case ,[facility] Kathi Ceja MD Aug 09, 2016 16:05
--- NOTE | 2016-08-09 17:54 | HHI.PR ---
Subjective Remarks Seen earlier today. Patient says he is in no pain. Says redness and swelling is improving. No fever or chills. Objective Vitals Vital Signs Date Time Temp Pulse Resp B/P Pulse Ox O2 Delivery O2 Flow Rate FiO2 08/09/16 16:00 98.2 77 18 127/66 94 08/09/16 12:00 97.8 74 18 110/65 95 08/09/16 08:40 Room Air 08/09/16 08:00 98.0 75 18 98/65 97 08/09/16 04:00 97.9 88 20 112/58 100 08/09/16 04:00 Room Air 08/09/16 00:00 Room Air 08/09/16 00:00 98.1 80 17 110/60 100 08/08/16 21:00 98.2 79 16 109/57 100 08/08/16 20:00 Room Air I/O 08/08/16 08/08/16 08/08/16 08/09/16 08/09/16 08/09/16 07:00 15:00 23:00 07:00 15:00 23:00 Intake Total 1060 ml 1050 ml 400 ml Output Total 1250 ml 1400 ml 1000 ml Balance -1250 ml -340 ml 1050 ml -600 ml Intake Oral 960 ml 1050 ml 400 ml IV Total 100 ml Output Urine Total 1250 ml 1400 ml 1000 ml # Voids 1 # Bowel Movements 0 1 0 0 Result Diagram: 08/07/16 0632 08/08/16 1103 Imaging Last Impressions Lower Extremity Ultrasound 08/06/16 0000 Signed Impressions: Service Date/Time: Saturday, August 06, 2016 08:03 - CONCLUSION: Negative for deep venous thrombosis. Bilateral inguinal adenopathy. Gaurang Hopkins MD FACR Objective Remarks GENERAL: Well-developed well-nourished. In no acute distress. SKIN: Warm and dry. Right elbow with open ulceration with minimal surrounding erythema and no drainage. Bilateral lower extremities with Baldomero wraps in place. Erythema extending. Multiple punctate areas of scabbing on the upper and lower extremities from scratching. HEENT: Normocephalic. Pupils equal and round. Mucous membranes pink and moist. CARDIOVASCULAR: Regular rate and rhythm. No murmur appreciated. RESPIRATORY: No accessory muscle use. Clear to auscultation. Breath sounds equal bilaterally. GASTROINTESTINAL: Abdomen soft, non-tender, nondistended. Bowel sounds x4. MUSCULOSKELETAL: Baldomero wraps for the knee. Thigh erythema improved. Trace lower extremity edema. NEUROLOGICAL: Awake and alert. No focal neurological deficits. Moves upper and lower extremities spontaneously. Normal speech. PSYCHIATRIC: Slightly anxious mood and affect; insight and judgment normal. Procedures none A/P Problem List: (1) Cellulitis ICD Code: L03.90 Status: Acute (2) Pruritus ICD Code: L29.9 Status: Acute Assessment and Plan 51-year-old male with a past medical history of hepatitis C, opiate abuse in the past, and chronic extremity wounds who presented for worsening of his wounds Cellulitis of chronic bilateral lower extremity wounds with failed outpatient therapy with Bactrim. Reviewed: Afebrile with no leukocytosis. Doppler negative for DVT. Previous wound cultures polymicrobial with multidrug resistant. - Received IV Zosyn and vancomycin pending results of wound cultures. Patient with pseudomonas aeruginosa, resistant to Levaquin. Patient will need IV abx. DC vanco . ID specialist following.Discussed with Dr Danica BALDWIN. Consult vascular surgeon. Patient has a h.o PVD. - consulted podiatry/wound care, discussed with Dr. Keyes, recommended continuing IV antibiotics pending wound cultures, diuresis, and outpatient wound care. Appreciate recommendations. - Diuresis with oral Lasix. Additional potassium replacement. Monitor intake and output, documented as -4500 overnight. Renal function stable. Pruritus secondary to weeping edema - Atarax 25 mg q6h PRN pruritus History of IV opioid abuse - Continue home methadone DVT prophylaxis - Lovenox 40 mg subq q24h Discharge Planning Pending improvement and clearance for DC. Need IV abx. ID for abx recommendations at [place]. [facility] surgeon to stephanie Discussed with the patient, nurse, Dr Danica BALDWIN, Dr Keyes podiatry Problem Qualifiers (1) Cellulitis: Qualified Code: L03.116 - Cellulitis of left lower extremity Vicenta Sloan MD Aug 09, 2016 17:54
[2016-08-09 20:00] VITALS: BP 126/61; PULSE 85; RESP 20; TEMP 98.6; O2SAT 98
--- NOTE | 2016-08-09 20:03 | PD.CAR.PN ---
CVT Progress Note Subjective/Hospital Course: Referral received Full consult to jumana Lozano Objective: Vital Signs Date Time Temp Pulse Resp B/P Pulse Ox O2 Delivery O2 Flow Rate FiO2 08/09/16 16:00 98.2 77 18 127/66 94 08/09/16 12:00 97.8 74 18 110/65 95 08/09/16 08:40 Room Air 08/09/16 08:00 98.0 75 18 98/65 97 08/09/16 04:00 97.9 88 20 112/58 100 08/09/16 04:00 Room Air 08/09/16 00:00 Room Air 08/09/16 00:00 98.1 80 17 110/60 100 08/08/16 21:00 98.2 79 16 109/57 100 Result Diagram: 08/07/16 0632 08/08/16 1103 Caitlyn Trujillo MD Aug 09, 2016 20:03
[2016-08-10] MEDS: CEFEPIME INJ 2,000 MG in SODIUM CHLORIDE 0.9% INJ 100 ML IV SCH ×4 (00:23→20:50)
[2016-08-10 00:35] VITALS: BP 119/63; PULSE 77; RESP 18; TEMP 98.1; O2SAT 97
[2016-08-10 04:34] VITALS: BP 105/63; PULSE 80; RESP 20; TEMP 97.9; O2SAT 94
[2016-08-10 07:59] LABS: BASOPHIL % 0.3 % (0.0-2.0); EOSINOPHIL # 0.4 TH/MM3 (0-0.4); EOSINOPHIL % 6.3 % (0.0-4.0); HEMATOCRIT 44.3 % (39.0-51.0); HEMO FLAGS DIFF FINAL; LYMPH % 21.7 % (9.0-44.0); LYMPHOCYTE # 1.4 TH/MM3 (1.0-4.8); MEAN CORPUSCULAR HEMOGLOBIN 32.1 PG (27.0-34.0); MEAN CORPUSCULAR HGB CONC 33.4 % (32.0-36.0); MONO % 9.6 % (0.0-8.0); NEUT % 62.1 % (16.0-70.0); PLATELET COUNT 231 TH/MM3 (150-450); RED BLOOD COUNT 4.62 MIL/MM3 (4.50-5.90); RED CELL DISTRIBUTION WIDTH 12.8 % (11.6-17.2); WHITE BLOOD COUNT 6.5 TH/MM3 (4.0-11.0)
[2016-08-10 08:00] VITALS: BP 126/69; PULSE 75; RESP 18; TEMP 98.1; O2SAT 97
[2016-08-10 08:18] LABS: BICARBONATE 30.3 MEQ/L (21.0-32.0)
[2016-08-10] MEDS: FUROSEMIDE 20 MG TAB PO SCH ×2 (08:25→17:32)
[2016-08-10] MEDS: METHADONE HCL 10 MG TAB PO SCH (08:25)
[2016-08-10] MEDS: ENOXAPARIN SODIUM 40 MG/0.4 ML SYRINGE SQ SCH (08:26)
[2016-08-10] MEDS: SODIUM CHLORIDE 0.9% FLUSH 10 ML FLUSH IV FLUSH SCH ×2 (08:27→20:48)
--- NOTE | 2016-08-10 11:39 | HHI.PR ---
Subjective Remarks Patient in bed. BL leg edema and erythema improving. Has pain with ambulation in both of his feet. No fever or chills. No n/v/d/c. Objective Vitals Vital Signs Date Time Temp Pulse Resp B/P Pulse Ox O2 Delivery O2 Flow Rate FiO2 08/10/16 04:34 97.9 80 20 105/63 94 08/10/16 00:35 98.1 77 18 119/63 97 08/09/16 20:15 Room Air 08/09/16 20:00 98.6 85 20 126/61 98 08/09/16 16:00 98.2 77 18 127/66 94 08/09/16 12:00 97.8 74 18 110/65 95 I/O 08/09/16 08/09/16 08/09/16 08/10/16 08/10/16 08/10/16 07:00 15:00 23:00 07:00 15:00 23:00 Intake Total 400 ml 960 ml Output Total 1000 ml 1000 ml 650 ml 650 ml Balance -600 ml -40 ml -650 ml -650 ml Intake Oral 400 ml 960 ml Output Urine Total 1000 ml 1000 ml 650 ml 650 ml # Bowel Movements 0 1 0 Result Diagram: 08/10/16 0655 08/10/16 0655 Imaging Last Impressions Lower Extremity Ultrasound 08/06/16 0000 Signed Impressions: Service Date/Time: Saturday, August 06, 2016 08:03 - CONCLUSION: Negative for deep venous thrombosis. Bilateral inguinal adenopathy. Gaurang Hopkins MD FACR Objective Remarks GENERAL: Well-developed well-nourished. In no acute distress. SKIN: Warm and dry. Right elbow with open ulceration with minimal surrounding erythema and no drainage. Bilateral lower extremities with Baldomero wraps in place. Erythema extending. Multiple punctate areas of scabbing on the upper and lower extremities from scratching. HEENT: Normocephalic. Pupils equal and round. Mucous membranes pink and moist. CARDIOVASCULAR: Regular rate and rhythm. No murmur appreciated. RESPIRATORY: No accessory muscle use. Clear to auscultation. Breath sounds equal bilaterally. GASTROINTESTINAL: Abdomen soft, non-tender, nondistended. Bowel sounds x4. MUSCULOSKELETAL: Baldomero wraps for the knee. Thigh erythema improved. Trace lower extremity edema. NEUROLOGICAL: Awake and alert. No focal neurological deficits. Moves upper and lower extremities spontaneously. Normal speech. PSYCHIATRIC: Slightly anxious mood and affect; insight and judgment normal. Procedures none A/P Problem List: (1) Cellulitis ICD Code: L03.90 Status: Acute (2) Pruritus ICD Code: L29.9 Status: Acute Assessment and Plan 51-year-old male with a past medical history of hepatitis C, opiate abuse in the past, and chronic extremity wounds who presented for worsening of his wounds Cellulitis of chronic bilateral lower extremity wounds with failed outpatient therapy with Bactrim. Reviewed: Afebrile with no leukocytosis. Doppler negative for DVT. Previous wound cultures polymicrobial with multidrug resistant. - Received IV Zosyn and vancomycin pending results of wound cultures. Patient with pseudomonas aeruginosa, resistant to Levaquin. Patient will need IV abx. DC vanco . ID specialist following.Discussed with Dr Danica BALDWIN. Consult vascular surgeon. Patient has a h.o PVD. - consulted podiatry/wound care, discussed with Dr. Keyes, recommended continuing IV antibiotics pending wound cultures, diuresis, and outpatient wound care. Appreciate recommendations. - Diuresis with oral Lasix. Additional potassium replacement. Monitor intake and output, documented as -4500 overnight. Renal function stable. Pruritus secondary to weeping edema - Atarax 25 mg q6h PRN pruritus History of IV opioid abuse - Continue home methadone DVT prophylaxis - Lovenox 40 mg subq q24h Discharge Planning Pending improvement and clearance for DC. Need IV abx. ID for abx recommendations at [place]. [facility] surgeon to stephanie Discussed with the patient, nurse Problem Qualifiers (1) Cellulitis: Qualified Code: L03.116 - Cellulitis of left lower extremity Vicenta Sloan MD Aug 10, 2016 11:39
[2016-08-10 12:00] VITALS: BP 114/66; PULSE 76; RESP 18; TEMP 97.7; O2SAT 97
--- NOTE | 2016-08-10 13:48 | PD.WCN.NOT ---
Wound Consult Description: Patient seen on 4 for evaluation of R elbow wound. Wound presents with 20 % dried serous exudate, 40% yellow adherent slough and 20% pink tissue. Wound noted with scant serous drainage without odor. Periwound is noted with some slight erythema and induration ~0.2 cm out from wound bed. Wound is without odor and heat to periwound. Wound measurements are as follows: 1.4x 1.7 x slough Cleansed wound with normal saline and applied Xeroform gauze in single layer just over wound bed and covered with dry 4x4 gauze and secured with rolled gauze and tape.Patient says wound started as "a couple of holes in elbow that were draining clear fluid". Communicated with: UMANG Solano RN [employer], and Doctor Nathalia Recommendation: Recommend to cleanse wound to R elbow with normal saline only and apply Santyl ointment david thickness over wound bed and cover with dry 4x4 gauze pad and secure with rolled gauze and tape.Change dressing daily. Do not use wound cleanser with Santyl ointment Leigh Gilliam CRN Aug 10, 2016 13:48
[2016-08-10 16:00] VITALS: BP 122/67; PULSE 71; RESP 18; TEMP 97; O2SAT 98
--- NOTE | 2016-08-10 16:10 | PD.CAR.PN ---
CVT Progress Note Subjective/Hospital Course: Referral received Full consult to jumana Lozano 08/10/16 51-year-old with the bilateral malleolar ulcers at the medial aspect of the ankles, left larger than right Patient has had left ulcer about a year and a right sided ulcer about 6 months. He states that prior to this he was able to walk distances it had no problems that would indicate claudication or arterial inflow pathology Physical examination reveals palpable femoral popliteal dorsalis pedis pulses bilaterally Posterior tibial pulses are not palpable he had a dopplerable on the right and weak on the left Indeed the bilateral malleolar ulcers are present there is a shallow into the subcutaneous tissue and relatively clean Usually patients with palpable pulses does not have significant degree of peripheral vascular disease that would require reconstruction but I seen exceptions to this in patients with very calcific vessels We'll order CTA with a runoff as a baseline study but I believe the majority of patient's disease is venous stasis related rather than an arterial phenomenon In some patients there is combination of the both an CTA should be able to sort this out Objective: Vital Signs Date Time Temp Pulse Resp B/P Pulse Ox O2 Delivery O2 Flow Rate FiO2 08/10/16 12:00 97.7 76 18 114/66 97 08/10/16 08:00 98.1 75 18 126/69 97 08/10/16 04:34 97.9 80 20 105/63 94 08/10/16 00:35 98.1 77 18 119/63 97 08/09/16 20:15 Room Air 08/09/16 20:00 98.6 85 20 126/61 98 Labs: Laboratory Tests Test 08/10/16 06:55 White Blood Count 6.5 TH/MM3 (4.0-11.0) Red Blood Count 4.62 MIL/MM3 (4.50-5.90) Hemoglobin 14.8 GM/DL (13.0-17.0) Hematocrit 44.3 % (39.0-51.0) Mean Corpuscular Volume 96.0 FL (80.0-100.0) Mean Corpuscular Hemoglobin 32.1 PG (27.0-34.0) Mean Corpuscular Hemoglobin 33.4 % Concent (32.0-36.0) Red Cell Distribution Width 12.8 % (11.6-17.2) Platelet Count 231 TH/MM3 (150-450) Mean Platelet Volume 8.0 FL (7.0-11.0) Neutrophils (%) (Auto) 62.1 % (16.0-70.0) Lymphocytes (%) (Auto) 21.7 % (9.0-44.0) Monocytes (%) (Auto) 9.6 % (0.0-8.0) Eosinophils (%) (Auto) 6.3 % (0.0-4.0) Basophils (%) (Auto) 0.3 % (0.0-2.0) Neutrophils # (Auto) 4.0 TH/MM3 (1.8-7.7) Lymphocytes # (Auto) 1.4 TH/MM3 (1.0-4.8) Monocytes # (Auto) 0.6 TH/MM3 (0-0.9) Eosinophils # (Auto) 0.4 TH/MM3 (0-0.4) Basophils # (Auto) 0.0 TH/MM3 (0-0.2) CBC Comment DIFF FINAL Differential Comment Sodium Level 139 MEQ/L (136-145) Potassium Level 4.0 MEQ/L (3.5-5.1) Chloride Level 101 MEQ/L (98-107) Carbon Dioxide Level 30.3 MEQ/L (21.0-32.0) Anion Gap 8 MEQ/L (5-15) Blood Urea Nitrogen 18 MG/DL (7-18) Creatinine 0.81 MG/DL (0.60-1.30) Estimat Glomerular Filtration 100 ML/MIN Rate (>89) Random Glucose 88 MG/DL (74-106) Calcium Level 9.1 MG/DL (8.5-10.1) Result Diagram: 08/10/16 0655 08/10/16 0655 Caitlyn Trujillo MD Aug 10, 2016 16:10
[2016-08-10 20:00] VITALS: BP 120/62; PULSE 81; RESP 18; TEMP 98.4; O2SAT 96
[2016-08-11] VITALS: BP 111/70; PULSE 79; RESP 18; TEMP 98.5; O2SAT 95
[2016-08-11 04:00] VITALS: BP 112/70; PULSE 65; RESP 18; TEMP 98; O2SAT 95
[2016-08-11] MEDS: CEFEPIME INJ 2,000 MG in SODIUM CHLORIDE 0.9% INJ 100 ML IV SCH ×3 (05:30→21:02)
[2016-08-11 08:00] VITALS: BP 114/87; PULSE 66; RESP 20; TEMP 98.1; O2SAT 97
--- NOTE | 2016-08-11 09:05 | HHI.PR ---
Subjective Remarks In bed, says he feels sleepy. Erythema and edema improving. Pain improving. No cp, sob, n/v/d/c. Plan for CTA runoff Objective Vitals Vital Signs Date Time Temp Pulse Resp B/P Pulse Ox O2 Delivery O2 Flow Rate FiO2 08/11/16 08:00 98.1 66 20 114/87 97 08/11/16 04:00 98.0 65 18 112/70 95 08/11/16 00:00 98.5 79 18 111/70 95 08/10/16 20:00 98.4 81 18 120/62 96 08/10/16 20:00 Room Air 08/10/16 16:00 97.0 71 18 122/67 98 08/10/16 12:00 97.7 76 18 114/66 97 I/O 08/10/16 08/10/16 08/10/16 08/11/16 08/11/16 08/11/16 07:00 15:00 23:00 07:00 15:00 23:00 Intake Total 960 ml 340 ml 440 ml Output Total 650 ml 800 ml Balance -650 ml 960 ml 340 ml -360 ml Intake Oral 960 ml 240 ml 240 ml IV Total 100 ml 200 ml Output Urine Total 650 ml 800 ml # Voids 3 4 # Bowel Movements 2 0 1 Result Diagram: 08/10/16 0655 08/10/16 0655 Imaging Last Impressions Lower Extremity Ultrasound 08/06/16 0000 Signed Impressions: Service Date/Time: Saturday, August 06, 2016 08:03 - CONCLUSION: Negative for deep venous thrombosis. Bilateral inguinal adenopathy. Gaurang Hopkins MD FACR Objective Remarks GENERAL: Well-developed well-nourished. In no acute distress. SKIN: Warm and dry. Right elbow with open ulceration with minimal surrounding erythema and no drainage. Bilateral lower extremities with Baldomero wraps in place. Erythema extending. Multiple punctate areas of scabbing on the upper and lower extremities from scratching. HEENT: Normocephalic. Pupils equal and round. Mucous membranes pink and moist. CARDIOVASCULAR: Regular rate and rhythm. No murmur appreciated. RESPIRATORY: No accessory muscle use. Clear to auscultation. Breath sounds equal bilaterally. GASTROINTESTINAL: Abdomen soft, non-tender, nondistended. Bowel sounds x4. MUSCULOSKELETAL: Baldomero wraps for the knee. Thigh erythema improved. Trace lower extremity edema. NEUROLOGICAL: Awake and alert. No focal neurological deficits. Moves upper and lower extremities spontaneously. Normal speech. PSYCHIATRIC: Slightly anxious mood and affect; insight and judgment normal. Procedures none A/P Problem List: (1) Cellulitis ICD Code: L03.90 Status: Acute (2) Pruritus ICD Code: L29.9 Status: Acute Assessment and Plan 51-year-old male with a past medical history of hepatitis C, opiate abuse in the past, and chronic extremity wounds who presented for worsening of his wounds Cellulitis of chronic bilateral lower extremity wounds with failed outpatient therapy with Bactrim. Reviewed: Afebrile with no leukocytosis. Doppler negative for DVT. Previous wound cultures polymicrobial with multidrug resistant. - Received IV Zosyn and vancomycin pending results of wound cultures. Patient with pseudomonas aeruginosa, resistant to Levaquin. Patient will need IV abx. DC vanco . ID specialist following.Discussed with Dr Danica BALDWIN. Consult vascular surgeon. Patient has a h.o ? PVD. - Vasc surgeon recommends CTA with a runoff - consulted podiatry/wound care, discussed with Dr. Keyes, recommended continuing IV antibiotics pending wound cultures, diuresis, and outpatient wound care. Appreciate recommendations. - Diuresis with oral Lasix. Additional potassium replacement. Monitor intake and output, documented as -4500 overnight. Renal function stable. Pruritus secondary to weeping edema - Atarax 25 mg q6h PRN pruritus History of IV opioid abuse - Continue home methadone DVT prophylaxis - Lovenox 40 mg subq q24h Discharge Planning Pending improvement and clearance for DC. Need IV abx. ID for abx recommendations at [place]. Vasc surgeon recommends CTA with a runoff Discussed with the patient, nurse Problem Qualifiers (1) Cellulitis: Qualified Code: L03.116 - Cellulitis of left lower extremity Vicenta Sloan MD Aug 11, 2016 09:05
[2016-08-11] MEDS: SODIUM CHLORIDE 0.9% FLUSH 10 ML FLUSH IV FLUSH SCH ×2 (09:56→21:03)
[2016-08-11] MEDS: FUROSEMIDE 20 MG TAB PO SCH ×2 (09:56→16:53)
[2016-08-11] MEDS: METHADONE HCL 10 MG TAB PO SCH (09:56)
[2016-08-11] MEDS: ENOXAPARIN SODIUM 40 MG/0.4 ML SYRINGE SQ SCH (09:56)
[2016-08-11] MEDS ORDERED: IOHEXOL 350 MG/ML 10 ML VIAL (for RAD DIAG) IV ONE (11:16)
[2016-08-11 12:00] VITALS: BP 117/74; PULSE 78; RESP 18; TEMP 98.1; O2SAT 98
--- NOTE | 2016-08-11 12:45 | RADRPT ---
EXAM DATE/TIME: 08/11/2016 10:56 [facility] COMPARISON: No previous studies available for comparison. INDICATIONS : Peripheral vascular disease,ulcers both legs. IV CONTRAST: 95 cc Omnipaque 350 (iohexol) IV RADIATION DOSE: 2.17 CTDIvol (mGy) MEDICAL HISTORY : Hypertension. Hepatitis C. Peripheral vascular disease. SURGICAL HISTORY : None. ENCOUNTER: Initial ACUITY: 1 day PAIN SCALE: 4/10 LOCATION: Bilateral Runoff TECHNIQUE: Volumetric scanning was performed using a multi-row detector CT scanner. The data was post processed with a variety of visualization algorithms including full volume maximum intensity projection, multi -planar sliding thin slab reformation, curved planar reformation, and surface rendering techniques. Using automated exposure control and adjustment of the mA and/or kV according to patient size, radiat ion dose was kept as low as reasonably achievable to obtain optimal diagnostic quality images. ANGIOGRAPHIC FINDINGS: AORTA: Abdominal aorta is normal in caliber without significant plaque or flow-limiting stenosis. VISCERAL ARTERIES: Single bilateral renal arteries which are widely patent. Celiac, SMA, and PROMISE are widely patent. RIGHT LEG: INFLOW: No iliac inflow stenosis. Common femoral artery is patent. OUTFLOW: Profunda femoris and SFA are widely patent. Popliteal artery is patent. RUNOFF: Three-vessel runoff to the foot. LEFT LEG: INFLOW: No iliac inflow stenosis. Common femoral artery is patent. OUTFLOW: Profunda is patent. SFA is patent. Popliteal artery is patent. RUNOFF: Three-vessel runoff to the foot. GENERAL FINDINGS: Visualized lung bases are clear. Examination of the abdominal viscera is limited due to arterial phas e technique. Liver, spleen, adrenal glands, gallbladder, and pancreas are grossly unremarkable. Kidne ys demonstrate symmetrical enhancement without evidence for radiopaque renal calculi or hydronephrosi s. No significant renal mass. The bowel appears unremarkable without evidence for obstruction. No sig nificant free fluid or drainable fluid collection. Bladder is mildly distended but otherwise unremarkable. Prostate and seminal vesicles are within norm al limits. There are multiple bilateral inguinal nodes. Largest on the left measures 1.9 x 1.8 cm. La rgest on the right measures 1.9 x 1.2 cm. CONCLUSION: 1. Unremarkable CTA with lower extremity runoff examination. No evidence for aortic occlusive disease , inflow or outflow stenosis with three-vessel runoff bilaterally. 2. Nonspecific bilateral inguinal adenopathy, likely infectious or reactive in etiology given history of lower extremity ulcers. Mahendra Aldrich MD on August 11, 2016 at 11:49 Board Certified Radiologist. This report was verified electronically.
[2016-08-11 16:00] VITALS: BP 121/67; PULSE 64; RESP 18; TEMP 97.9; O2SAT 98
--- NOTE | 2016-08-11 16:41 | PD.CAR.PN ---
CVT Progress Note Subjective/Hospital Course: Referral received Full consult to jumana Lozano 08/10/16 51-year-old with the bilateral malleolar ulcers at the medial aspect of the ankles, left larger than right Patient has had left ulcer about a year and a right sided ulcer about 6 months. He states that prior to this he was able to walk distances it had no problems that would indicate claudication or arterial inflow pathology Physical examination reveals palpable femoral popliteal dorsalis pedis pulses bilaterally Posterior tibial pulses are not palpable he had a dopplerable on the right and weak on the left Indeed the bilateral malleolar ulcers are present there is a shallow into the subcutaneous tissue and relatively clean Usually patients with palpable pulses does not have significant degree of peripheral vascular disease that would require reconstruction but I seen exceptions to this in patients with very calcific vessels We'll order CTA with a runoff as a baseline study but I believe the majority of patient's disease is venous stasis related rather than an arterial phenomenon In some patients there is combination of the both an CTA should be able to sort this out 08/11/[address] angiogram with runoff and indeed it confirms my above noted the observation and clinical exam Patient does not have hemodynamically significant stenosis either in the inflow or outflow tract of his both legs so nothing to reconstruct surgically Ankle ulcers are due to venous stasis and should be managed as such Nothing to add from vascular point Objective: Vital Signs Date Time Temp Pulse Resp B/P Pulse Ox O2 Delivery O2 Flow Rate FiO2 08/11/16 12:00 98.1 78 18 117/74 98 08/11/16 10:00 Room Air 08/11/16 08:00 98.1 66 20 114/87 97 08/11/16 04:00 98.0 65 18 112/70 95 08/11/16 00:00 98.5 79 18 111/70 95 08/10/16 20:00 98.4 81 18 120/62 96 08/10/16 20:00 Room Air Result Diagram: 08/10/16 0655 08/10/16 0655 Caitlyn Trujillo MD Aug 11, 2016 16:41
--- NOTE | 2016-08-11 17:04 | HHI.IDPN ---
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 Vital Signs Date Time Temp Pulse Resp B/P Pulse Ox O2 Delivery O2 Flow Rate FiO2 08/11/16 12:00 98.1 78 18 117/74 98 08/11/16 10:00 Room Air 08/11/16 08:00 98.1 66 20 114/87 97 08/11/16 04:00 98.0 65 18 112/70 95 08/11/16 00:00 98.5 79 18 111/70 95 08/10/16 20:00 98.4 81 18 120/62 96 08/10/16 20:00 Room Air 08/10/16 08/10/16 08/11/16 15:00 23:00 07:00 Intake Total 960 ml 340 ml 440 ml Output Total 800 ml Balance 960 ml 340 ml -360 ml Intake Oral 960 ml 240 ml 240 ml IV Total 100 ml 200 ml Output Urine Total 800 ml # Voids 3 4 # Bowel Movements 2 0 1 . Laboratory Tests Test 08/10/16 06:55 White Blood Count 6.5 TH/MM3 Red Blood Count 4.62 MIL/MM3 Hemoglobin 14.8 GM/DL Hematocrit 44.3 % Mean Corpuscular Volume 96.0 FL Mean Corpuscular Hemoglobin 32.1 PG Mean Corpuscular Hemoglobin 33.4 % Concent Red Cell Distribution Width 12.8 % Platelet Count 231 TH/MM3 Mean Platelet Volume 8.0 FL Neutrophils (%) (Auto) 62.1 % Lymphocytes (%) (Auto) 21.7 % Monocytes (%) (Auto) 9.6 % Eosinophils (%) (Auto) 6.3 % Basophils (%) (Auto) 0.3 % Neutrophils # (Auto) 4.0 TH/MM3 Lymphocytes # (Auto) 1.4 TH/MM3 Monocytes # (Auto) 0.6 TH/MM3 Eosinophils # (Auto) 0.4 TH/MM3 Basophils # (Auto) 0.0 TH/MM3 CBC Comment DIFF FINAL Differential Comment Laboratory Tests Test 08/10/16 06:55 Sodium Level 139 MEQ/L Potassium Level 4.0 MEQ/L Chloride Level 101 MEQ/L Carbon Dioxide Level 30.3 MEQ/L Anion Gap 8 MEQ/L Blood Urea Nitrogen 18 MG/DL Creatinine 0.81 MG/DL Estimat Glomerular Filtration 100 ML/MIN Rate Random Glucose 88 MG/DL Calcium Level 9.1 MG/DL Imaging Last Impressions Aorta w/Runoff CTA 08/10/16 0000 Signed Impressions: Service Date/Time: Thursday, August 11, 2016 10:56 - CONCLUSION: 1. Unremarkable CTA with lower extremity runoff examination. No evidence for aortic occlusive disease, inflow or outflow stenosis with three-vessel runoff bilaterally. 2. Nonspecific bilateral inguinal adenopathy, likely infectious or reactive in etiology given history of lower extremity ulcers. Mahendra Aldrich MD Lower Extremity Ultrasound 08/06/16 0000 Signed Impressions: Service Date/Time: Saturday, August 06, 2016 08:03 - CONCLUSION: Negative for deep venous thrombosis. Bilateral inguinal adenopathy. Gaurang Hopkins MD FACR Physical Exam CONSTITUTIONAL/GENERAL: This is an adequately nourished patient, in no apparent distress. SKIN: No jaundice, rashes, or lesions. Skin temperature appropriate. Not diaphoretic. RESPIRATORY/CHEST: Symmetric, unlabored respirations. GASTROINTESTINAL: Abdomen soft, non-tender, nondistended. MUSCULOSKELETAL: Chronic hyperpigmentation b/l LE b/l LE with dressing isn in place resolcved edema, erythema + lymphangits, tender erthemaous thigh - resolved B/l prominent inguinal lympahdenopathy NEUROLOGICAL: Awake and alert. Non focal PSYCHIATRIC: No obvious anxiety/depression. no apparent hallucinations or other psychotic thought process. Assessment & Plan Remarks Venous insufficiency and venous stasis ulcerations bilaterally ? underlying arterial insufficiency LLE cellulitis, lymphagitis, port of entry L foot chronic venostasis ulcer - improving on curretn tx PSAE in the ulceration cont cefepime - PICC - anticipate IV abx x 7 more days(no po options ) - OK to dc home Dr Natahlia Ceja,Kathi Ibrahim MD Aug 11, 2016 17:03
--- NOTE | 2016-08-11 17:05 | HHI.FF ---
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 [] May leave port accessed during therapy. [] May leave peripheral site accessed for duration of therapy. [x] If patient has SOB or respiratory distress, check oxygen saturation. If less than 90% or clinical signs of respiratory distress, administer oxygen at 2 L/min. via nasal cannula and notify physician. [x] Anaphylaxis/Reaction orders: * Stop infusion. * Keep IV line open with saline flush. * Notify physician. * Monitor vital signs every 15 minutes until symptoms resolve. * Check Oxygen saturation; Oxygen at 2 L/min. via nasal cannula if less than 90% or clinical signs of respiratory distress. * Administer diphenhydramine (Benadryl) 25 mg IV STAT, (unless patient has received as pre-med). May repeat once, if necessary. * Solu-Cortef 250 mg IVP over 30-60 seconds, use 100 mg vials for each dissolution. * Epinephrine (1mg/1 ml) 0.3 mg subcutaneously or IVP now with any signs of respiratory distress. * Check with physician for new additional pre-med orders if patient is re- challenged or re-treated. [x] May remove PICC line when treatment complete, after confirming with Physician. [x] If the patient is admitted to the hospital, the ED, or transferred via [facility] , complete transfer form including medication reconciliation order sheet. Laboratory Tests Weekly Labs: CBC w/diff, Creatinine Kathi Ceja MD Aug 11, 2016 17:05
[2016-08-11 20:00] VITALS: BP 120/70; PULSE 76; RESP 16; TEMP 98.3; O2SAT 97
[2016-08-12 04:00] VITALS: BP 114/64; PULSE 62; RESP 18; TEMP 97.9; O2SAT 95
[2016-08-12] MEDS: CEFEPIME INJ 2,000 MG in SODIUM CHLORIDE 0.9% INJ 100 ML IV SCH ×3 (05:46→22:33)
[2016-08-12 08:00] VITALS: BP 112/73; PULSE 62; RESP 16; TEMP 97.8; O2SAT 97
[2016-08-12] MEDS: SODIUM CHLORIDE 0.9% FLUSH 10 ML FLUSH IV FLUSH SCH ×2 (09:00→22:33)
--- NOTE | 2016-08-12 09:08 | HHI.PR ---
Subjective Remarks Says erythema and edema improving. Has some pain while walking in his right foot. No fever or chills overnight. Objective Vitals Vital Signs Date Time Temp Pulse Resp B/P Pulse Ox O2 Delivery O2 Flow Rate FiO2 08/12/16 04:00 97.9 62 18 114/64 95 08/12/16 03:48 Room Air 08/12/16 01:10 Room Air 08/11/16 21:55 Room Air 08/11/16 20:00 98.3 76 16 120/70 97 08/11/16 16:00 97.9 64 18 121/67 98 08/11/16 12:00 98.1 78 18 117/74 98 08/11/16 10:00 Room Air I/O 08/11/16 08/11/16 08/11/16 08/12/16 08/12/16 08/12/16 07:00 15:00 23:00 07:00 15:00 23:00 Intake Total 440 ml 960 ml 588 ml 348 ml Output Total 800 ml Balance -360 ml 960 ml 588 ml 348 ml Intake Oral 240 ml 960 ml 480 ml 240 ml IV Total 200 ml 108 ml 108 ml Output Urine Total 800 ml # Voids 4 3 5 # Bowel Movements 1 1 0 3 Result Diagram: 08/10/16 0655 08/10/16 0655 Imaging Last Impressions Aorta w/Runoff CTA 08/10/16 0000 Signed Impressions: Service Date/Time: Thursday, August 11, 2016 10:56 - CONCLUSION: 1. Unremarkable CTA with lower extremity runoff examination. No evidence for aortic occlusive disease, inflow or outflow stenosis with three-vessel runoff bilaterally. 2. Nonspecific bilateral inguinal adenopathy, likely infectious or reactive in etiology given history of lower extremity ulcers. Mahendra Aldrich MD Lower Extremity Ultrasound 08/06/16 0000 Signed Impressions: Service Date/Time: Saturday, August 06, 2016 08:03 - CONCLUSION: Negative for deep venous thrombosis. Bilateral inguinal adenopathy. Gaurang Hopkins MD FACR Objective Remarks GENERAL: Well-developed well-nourished. In no acute distress. SKIN: Warm and dry. Right elbow with open ulceration with minimal surrounding erythema and no drainage. Bilateral lower extremities with Baldomero wraps in place. Erythema extending. Multiple punctate areas of scabbing on the upper and lower extremities from scratching. HEENT: Normocephalic. Pupils equal and round. Mucous membranes pink and moist. CARDIOVASCULAR: Regular rate and rhythm. No murmur appreciated. RESPIRATORY: No accessory muscle use. Clear to auscultation. Breath sounds equal bilaterally. GASTROINTESTINAL: Abdomen soft, non-tender, nondistended. Bowel sounds x4. MUSCULOSKELETAL: Baldomero wraps for the knee. Thigh erythema improved. Trace lower extremity edema. NEUROLOGICAL: Awake and alert. No focal neurological deficits. Moves upper and lower extremities spontaneously. Normal speech. PSYCHIATRIC: Slightly anxious mood and affect; insight and judgment normal. Procedures none A/P Problem List: (1) Cellulitis ICD Code: L03.90 Status: Acute (2) Pruritus ICD Code: L29.9 Status: Acute Assessment and Plan 51-year-old male with a past medical history of hepatitis C, opiate abuse in the past, and chronic extremity wounds who presented for worsening of his wounds Cellulitis of chronic bilateral lower extremity wounds with failed outpatient therapy with Bactrim. Reviewed: Afebrile with no leukocytosis. Doppler negative for DVT. Previous wound cultures polymicrobial with multidrug resistant. - Received IV Zosyn and vancomycin pending results of wound cultures. Patient with pseudomonas aeruginosa, resistant to Levaquin. Patient will need IV abx. DC vanco . ID specialist following.Discussed with Dr Mishra ID. Consult vascular surgeon. Patient has a h.o ? PVD. - Vasc surgeon recommends CTA with a runoff - consulted podiatry/wound care, discussed with Dr. Keyes, recommended continuing IV antibiotics pending wound cultures, diuresis, and outpatient wound care. Appreciate recommendations. - Diuresis with oral Lasix. Additional potassium replacement. Monitor intake and output, documented as -4500 overnight. Renal function stable. Pruritus secondary to weeping edema - Atarax 25 mg q6h PRN pruritus History of IV opioid abuse - Continue home methadone DVT prophylaxis - Lovenox 40 mg subq q24h Discharge Planning Pending improvement and clearance for DC. Need IV abx. ID for abx recommendations at [place]. Vasc surgeon recommends CTA with a runoff , which was normal , cleared by vasc surgeon Discussed with the patient, nurse Discussed with case management. patient will need Q8 hrs abx. Discussed with ID specialist. Patient likely will need pump and can be DC . DC planL Needs zosyn as oP q8hrs. ID specialist and CM following for abx arrangements at [place]. Patient will need pump of abx. Poss DC tomorrow Problem Qualifiers (1) Cellulitis: Qualified Code: L03.116 - Cellulitis of left lower extremity Vicenta Sloan MD Aug 12, 2016 09:08
[2016-08-12] MEDS: ENOXAPARIN SODIUM 40 MG/0.4 ML SYRINGE SQ SCH (09:19)
[2016-08-12] MEDS: FUROSEMIDE 20 MG TAB PO SCH ×2 (09:19→16:54)
[2016-08-12] MEDS: METHADONE HCL 10 MG TAB PO SCH (09:19)
[2016-08-12 12:00] VITALS: BP 107/65; PULSE 66; RESP 16; TEMP 97.7; O2SAT 95
[2016-08-12 16:00] VITALS: BP 112/65; PULSE 68; RESP 16; TEMP 97.8; O2SAT 97
[2016-08-12 20:00] VITALS: BP 127/78; PULSE 93; RESP 16; TEMP 98.2; O2SAT 100
[2016-08-13 00:14] VITALS: BP 114/65; PULSE 64; RESP 16; TEMP 98.5; O2SAT 96
[2016-08-13 04:00] VITALS: BP 105/64; PULSE 60; RESP 16; TEMP 98; O2SAT 95
[2016-08-13] MEDS: CEFEPIME INJ 2,000 MG in SODIUM CHLORIDE 0.9% INJ 100 ML IV SCH ×3 (05:50→20:20)
[2016-08-13 08:00] VITALS: BP 107/59; PULSE 58; RESP 18; TEMP 98.2; O2SAT 97
[2016-08-13] MEDS: METHADONE HCL 10 MG TAB PO SCH (08:23)
[2016-08-13] MEDS: FUROSEMIDE 20 MG TAB PO SCH ×2 (08:23→17:42)
[2016-08-13] MEDS: ENOXAPARIN SODIUM 40 MG/0.4 ML SYRINGE SQ SCH (08:24)
[2016-08-13] MEDS: SODIUM CHLORIDE 0.9% FLUSH 10 ML FLUSH IV FLUSH SCH ×2 (08:26→20:20)
--- NOTE | 2016-08-13 10:27 | HHI.FF ---
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 [] May leave port accessed during therapy. [] May leave peripheral site accessed for duration of therapy. [x] If patient has SOB or respiratory distress, check oxygen saturation. If less than 90% or clinical signs of respiratory distress, administer oxygen at 2 L/min. via nasal cannula and notify physician. [x] Anaphylaxis/Reaction orders: * Stop infusion. * Keep IV line open with saline flush. * Notify physician. * Monitor vital signs every 15 minutes until symptoms resolve. * Check Oxygen saturation; Oxygen at 2 L/min. via nasal cannula if less than 90% or clinical signs of respiratory distress. * Administer diphenhydramine (Benadryl) 25 mg IV STAT, (unless patient has received as pre-med). May repeat once, if necessary. * Solu-Cortef 250 mg IVP over 30-60 seconds, use 100 mg vials for each dissolution. * Epinephrine (1mg/1 ml) 0.3 mg subcutaneously or IVP now with any signs of respiratory distress. * Check with physician for new additional pre-med orders if patient is re- challenged or re-treated. [x] May remove PICC line when treatment complete, after confirming with Physician. [x] If the patient is admitted to the hospital, the ED, or transferred via [facility] , complete transfer form including medication reconciliation order sheet. Laboratory Tests Weekly Labs: CBC w/diff, Creatinine, LFT's (Hepatic function test) Kathi Ceja MD Aug 13, 2016 10:27
--- NOTE | 2016-08-13 10:30 | HHI.PR ---
Addendum to Inpatient Note Additional Information will switch to continious infusion of zosyn which is OK for a pump OK to dc home dw Dr Sloan and case mngr Kathi Ceja MD Aug 13, 2016 10:30
[2016-08-13 12:00] VITALS: BP 114/65; PULSE 65; RESP 18; TEMP 97.9; O2SAT 97
--- NOTE | 2016-08-13 12:15 | HHI.PR ---
Subjective Remarks Feels improving erythema and edema. Still with some poain especially with ambulation , worse on the left leg, pain is controlled by meds. No fever or chills. No n/v/d/c. Objective Vitals Vital Signs Date Time Temp Pulse Resp B/P Pulse Ox O2 Delivery O2 Flow Rate FiO2 08/13/16 08:00 98.2 58 18 107/59 97 08/13/16 04:00 98.0 60 16 105/64 95 08/13/16 00:14 98.5 64 16 114/65 96 08/12/16 20:45 Room Air 08/12/16 20:00 98.2 93 16 127/78 100 08/12/16 16:00 97.8 68 16 112/65 97 I/O 08/12/16 08/12/16 08/12/16 08/13/16 08/13/16 08/13/16 07:00 15:00 23:00 07:00 15:00 23:00 Intake Total 348 ml 480 ml 460 ml 1080 ml Output Total 600 ml Balance 348 ml -120 ml 460 ml 1080 ml Intake Oral 240 ml 480 ml 460 ml 1080 ml IV Total 108 ml Output Urine Total 600 ml # Voids 5 3 3 # Bowel Movements 3 1 1 0 Result Diagram: 08/10/16 0655 08/10/16 0655 Imaging Last Impressions Aorta w/Runoff CTA 08/10/16 0000 Signed Impressions: Service Date/Time: Thursday, August 11, 2016 10:56 - CONCLUSION: 1. Unremarkable CTA with lower extremity runoff examination. No evidence for aortic occlusive disease, inflow or outflow stenosis with three-vessel runoff bilaterally. 2. Nonspecific bilateral inguinal adenopathy, likely infectious or reactive in etiology given history of lower extremity ulcers. Mahendra Aldrich MD Lower Extremity Ultrasound 08/06/16 0000 Signed Impressions: Service Date/Time: Saturday, August 06, 2016 08:03 - CONCLUSION: Negative for deep venous thrombosis. Bilateral inguinal adenopathy. Gaurang Hopkins MD FACR Objective Remarks GENERAL: Well-developed well-nourished. In no acute distress. SKIN: Warm and dry. Right elbow with open ulceration with minimal surrounding erythema and no drainage. Bilateral lower extremities with Baldomero wraps in place. Erythema extending. Multiple punctate areas of scabbing on the upper and lower extremities from scratching. HEENT: Normocephalic. Pupils equal and round. Mucous membranes pink and moist. CARDIOVASCULAR: Regular rate and rhythm. No murmur appreciated. RESPIRATORY: No accessory muscle use. Clear to auscultation. Breath sounds equal bilaterally. GASTROINTESTINAL: Abdomen soft, non-tender, nondistended. Bowel sounds x4. MUSCULOSKELETAL: Baldomero wraps for the knee. Thigh erythema improved. Trace lower extremity edema. NEUROLOGICAL: Awake and alert. No focal neurological deficits. Moves upper and lower extremities spontaneously. Normal speech. PSYCHIATRIC: Slightly anxious mood and affect; insight and judgment normal. Procedures none A/P Problem List: (1) Cellulitis ICD Code: L03.90 Status: Acute (2) Pruritus ICD Code: L29.9 Status: Acute Assessment and Plan 51-year-old male with a past medical history of hepatitis C, opiate abuse in the past, and chronic extremity wounds who presented for worsening of his wounds Cellulitis of chronic bilateral lower extremity wounds with failed outpatient therapy with Bactrim. Reviewed: Afebrile with no leukocytosis. Doppler negative for DVT. Previous wound cultures polymicrobial with multidrug resistant. - Received IV Zosyn and vancomycin pending results of wound cultures. Patient with pseudomonas aeruginosa, resistant to Levaquin. Patient will need IV abx. DC vanco . ID specialist following.Discussed with Dr Danica BALDWIN. Consult vascular surgeon. Patient has a h.o ? PVD. - Vasc surgeon recommends CTA with a runoff - consulted podiatry/wound care, discussed with Dr. Keyes, recommended continuing IV antibiotics pending wound cultures, diuresis, and outpatient wound care. Appreciate recommendations. - Diuresis with oral Lasix. Additional potassium replacement. Monitor intake and output, documented as -4500 overnight. Renal function stable. Pruritus secondary to weeping edema - Atarax 25 mg q6h PRN pruritus History of IV opioid abuse - Continue home methadone DVT prophylaxis - Lovenox 40 mg subq q24h Discharge Planning Pending improvement and clearance for DC. Need IV abx. ID for abx recommendations at [place]. Vasc surgeon recommends CTA with a runoff , which was normal , cleared by vasc surgeon Discussed with the patient, nurse Discussed with case management. patient will need Q8 hrs abx. Discussed with ID specialist. Patient likely will need pump and can be DC . DC planL Needs zosyn as oP q8hrs. ID specialist and CM following for abx arrangements at [place]. Patient will need pump of abx. Discused with case management and DR Mishra ID. Antibiotics can't be done as OP. Plan to transfer to [facility] to finish course of abx. Discussed with Dr Kong at [facility] , accepts the patient. Problem Qualifiers (1) Cellulitis: Qualified Code: L03.116 - Cellulitis of left lower extremity Vicenta Sloan MD Aug 13, 2016 12:15
--- NOTE | 2016-08-13 13:08 | HHI.FF ---
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 [] May leave port accessed during therapy. [] May leave peripheral site accessed for duration of therapy. [x] If patient has SOB or respiratory distress, check oxygen saturation. If less than 90% or clinical signs of respiratory distress, administer oxygen at 2 L/min. via nasal cannula and notify physician. [x] Anaphylaxis/Reaction orders: * Stop infusion. * Keep IV line open with saline flush. * Notify physician. * Monitor vital signs every 15 minutes until symptoms resolve. * Check Oxygen saturation; Oxygen at 2 L/min. via nasal cannula if less than 90% or clinical signs of respiratory distress. * Administer diphenhydramine (Benadryl) 25 mg IV STAT, (unless patient has received as pre-med). May repeat once, if necessary. * Solu-Cortef 250 mg IVP over 30-60 seconds, use 100 mg vials for each dissolution. * Epinephrine (1mg/1 ml) 0.3 mg subcutaneously or IVP now with any signs of respiratory distress. * Check with physician for new additional pre-med orders if patient is re- challenged or re-treated. [x] May remove PICC line when treatment complete, after confirming with Physician. [x] If the patient is admitted to the hospital, the ED, or transferred via [facility] , complete transfer form including medication reconciliation order sheet. Laboratory Tests Weekly Labs: CBC w/diff, Creatinine Kathi Ceja MD Aug 13, 2016 13:08
[2016-08-13] MEDS ORDERED: CEFE2INJ9 IV (13:10)
[2016-08-13] MEDS ORDERED: EPIN1INJ21 SQ (13:10)
[2016-08-13] MEDS ORDERED: EPIN1INJ21 IV PUSH (13:10)
[2016-08-13] MEDS ORDERED: SOLU250I IV PUSH (13:10)
--- NOTE | 2016-08-13 13:11 | HHI.PR ---
Addendum to Inpatient Note Additional Information will d/c pt on cefepime 4 gm cont infusion x 7 days since zosynn was cont feasible on the pump dw case mngr Kathi Ceja MD Aug 13, 2016 13:11
[2016-08-13 16:00] VITALS: BP 119/66; PULSE 78; RESP 18; TEMP 97.9; O2SAT 100
[2016-08-13 20:23] VITALS: BP 129/71; PULSE 74; RESP 19; TEMP 98; O2SAT 99
== END 2016-08-13 21:20 | disposition home or self-care (01) | DRG 603 ==
LOC: NEPE 20:32 → NEDA 08-06 00:15 → NEPGCP 08-06 01:23 → N04B 08-06 17:49
PROVIDERS: ADMIT Hospitalist; ATTEND Hospitalist
DX: L03.115 Cellulitis of right lower limb (principal); L97.309 Non-pressure chronic ulcer of unspecified ankle with unspecified severity; I10 Essential (primary) hypertension; I73.9 Peripheral vascular disease, unspecified; I77.1 Stricture of artery; I87.2 Venous insufficiency (chronic) (peripheral); L03.116 Cellulitis of left lower limb; L29.9 Pruritus, unspecified; Z87.442 Personal history of urinary calculi; Z87.891 Personal history of nicotine dependence; B19.20 Unspecified viral hepatitis C without hepatic coma
CPT/HCPCS: 36569; 75635; 76937; 80048; 80202; 83735; 85025; 85652; 86140; 87070; 87077; 87186; 87205; 93970; 96365; J0692; J1650; J2543; J3370; J7040; J7050; Q9967

== ENCOUNTER 2016-08-24 01:13 | Emergency (ER) | payer SELFPAY ==
[~2016-08-24] VITALS: Ht 172.7 cm; Wt 72.5 kg
[~2016-08-24 01:13] MED LIST changes: -ALPR.5 PO; -AUGM500T7 PO; -DOXY100C PO
[2016-08-24 01:15] VITALS: BP 145/82; PULSE 110; RESP 16; TEMP 98.4; O2SAT 98
[2016-08-24 03:06] LABS: AUTOMATED NEUTROPHIL # 2.5 TH/MM3 (1.8-7.7); BASOPHIL % 0.6 % (0.0-2.0); EOSINOPHIL # 0.6 TH/MM3 (0-0.4); EOSINOPHIL % 12.7 % (0.0-4.0); HEMATOCRIT 34.6 % (39.0-51.0); HEMO FLAGS DIFF FINAL; LYMPHOCYTE # 0.9 TH/MM3 (1.0-4.8); MEAN CELL VOLUME 95.4 FL (80.0-100.0); MEAN CORPUSCULAR HEMOGLOBIN 32.9 PG (27.0-34.0); MEAN CORPUSCULAR HGB CONC 34.4 % (32.0-36.0); MONO % 11.2 % (0.0-8.0); NEUT % 55.5 % (16.0-70.0); PLATELET COUNT 182 TH/MM3 (150-450); RED BLOOD COUNT 3.63 MIL/MM3 (4.50-5.90); RED CELL DISTRIBUTION WIDTH 13.2 % (11.6-17.2); WHITE BLOOD COUNT 4.6 TH/MM3 (4.0-11.0)
--- NOTE | 2016-08-24 03:28 | PD ---
HPI Chief Complaint: Skin Problem Time Seen by Provider: :29 Travel History International Travel<30 days: No Contact w/Intl Traveler<30days: No Traveled to known affect area: No History of Present Illness HPI The patient is a 51 year old male who presents to the [facility] emergency department with a history of chronic wounds involving the bilateral medial aspects of the ankle that first began in the right ankle in December 2014. He reports that it began related to a sore that developed from a shoe. He reports that since then he has intermittently had infections related to the areas of ulceration. He has been in wound care in the past. He was recently admitted to the hospital from August 06 through August 13 for infection related to the wounds. The patient was followed by infectious disease. And when he was discharged on the he was continued with a PICC line on cefepime 3 August 19. He reports that he did complete the course of treatment and the PICC line was removed. He reports that since then he's had a lapse in his insurance and has been unable to follow-up with his primary care physician, infectious disease doctor, or wound care. He reports that he has been changing his dressings regularly. He reports that his right ankle wound is more painful and draining more. He reports that the area of redness surrounding it has worsened again. The patient reports that he is concerned that he has a parasite. He reports that he seen worms in his skin, urine, and stool. The patient reports that his cats also have worms. The patient reports that the right ankle dressing was last changed yesterday morning. He reports that it became stuck on his ankle, therefore was painful to try to remove it. The patient denies having any fevers. On review of systems, he denies having any cough, congestion, neck pain , chest pain, chest pressure, shortness of breath, abdominal pain, vomiting, or diarrhea. He reports that he has had some problems with constipation. He reports that he has not moved his bowels for the last 3 days. He denies having any urinary symptoms or neurologic symptoms. [facility] Past Medical History Narrative Medical The patient's past medical history is significant for chronic wounds of bilateral medial aspects of ankles, poor circulation in his ankles, history of prior opiate abuse, currently maintained on methadone, history of hepatitis C. Medical History: Denies Significant Hx Hx Anticoagulant Therapy: No Blood Disorders: No Anxiety: No Depression: No Cancer: No Cardiovascular Problems: No Chemotherapy: No Cerebrovascular Accident: No Diabetes: No Diminished Hearing: No Endocrine: No Gastrointestinal Disorders: No Genitourinary: No Immune Disorder: No Kidney Stones: Yes Musculoskeletal: No Neurologic: No Psychiatric: Yes (methadone therapy, prior opiate addiction ) Reproductive: No Respiratory: No Integumentary: Yes (CELLULITIS) Immunizations Current: Yes Tetanus Vaccination: < 5 Years Influenza Vaccination: No Past Surgical History Narrative Surgical The patient's past surgical history is reportedly none. Surgical History: No Previous Surgery Abdominal Surgery: No AICD: No Cardiac Surgery: No Ear Surgery: No Endocrine Surgery: No Eye Surgery: No Genitourinary Surgery: No Gynecologic Surgery: No Hysterectomy: No Joint Replacement: No Oral Surgery: No Pacemaker: No Thoracic Surgery: No Social History Alcohol Use: Yes (rare) Tobacco Use: No Substance Use: No Allergies-Medications (Allergen,Severity, Reaction): Coded Allergies: Adhesives (Verified Allergy, Severe, 08/19/16) Nubain (Verified Allergy, Severe, 08/19/16) Talwin (Verified Allergy, Severe, 08/19/16) *MDRO Multi-Drug Resistant Organism (Verified Adverse Reaction, Unknown, ) 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) Reported Meds & Prescriptions Reported Meds & Active Scripts Active Bactrim DS (Sulfamethoxazole-Trimethoprim) 800-160 Mg Tab 1 Tab PO BID 10 Days Reported Methadone (Methadone HCl) 40 Mg Tab 40 Mg PO DAILY Review of Systems Except as stated in HPI: all other systems reviewed are Neg General / Constitutional: No: Fever Eyes: No: Visual changes HENT: No: Headaches Cardiovascular: No: Chest Pain or Discomfort Respiratory: No: Shortness of Breath Gastrointestinal: No: Abdominal Pain Genitourinary: No: Dysuria Musculoskeletal: Positive: Myalgias, Edema, Pain Skin: Positive Other (chronic ulceration of bilateral ankles), No Rash Neurologic: No: Weakness Psychiatric: No: Depression Endocrine: No: Polydipsia Hematologic/Lymphatic: No: Easy Bruising Physical Exam Narrative General: The patient is a well-developed well-nourished male in no acute distress. Chronically itching and picking at his skin during my initial evaluation. Head and Neck exam: Head is normocephalic atraumatic. Eyes: EOMI, pupils are equal round and reactive to light. Nose: Midline septum with pink mucous membranes Mouth: Dentition unremarkable. Moist mucus membranes. Posterior oropharynx is not erythematous. No tonsillar hypertrophy. Uvula midline. Airway patent. Neck: No palpable lymphadenopathy. No nuchal rigidity. No thyromegaly. Cardiovascular: Regular rate and rhythm without murmurs, gallops, or rubs. Lungs: Clear to auscultation bilaterally. No wheezes, rhonchi, or rales. Abdomen: Soft, without tenderness to palpation in all 4 quadrants of the abdomen. No guarding, rebound, or rigidity. Normal bowel sounds are audible. No tenderness on palpation of McBurney's point. Negative Hernandez's sign. Extremities: No clubbing, cyanosis, or edema. 2+ pulses in all 4 extremities. No calf tenderness on palpation. The area of interest is bilateral medial aspects of ankles. The patient's left ulcerated wound has pink granulation tissue noted within it with a thin line of erythema surrounding the wound. The right medial ankle has a similar area of ulceration, however there is less pink granulation tissue noted. There is a larger area of erythema that blanches surrounding this area of ulceration. The patient has less than 3 second capillary refill. Intact sensation to all of his digits. Back: No spinous process tenderness to palpation. No costovertebral angle tenderness to palpation. Neurologic Exam: Grossly nonfocal. Skin Exam: On examination of bilateral upper extremities the patient has extremely dry skin with erythema noted and some areas of crusting. The patient reports that he was concerned that he had an infestation of parasites and did attempt to clean his skin with tile flooring grader. Data Data Last Documented VS Vital Signs Date Time Temp Pulse Resp B/P Pulse Ox O2 Delivery O2 Flow Rate FiO2 08/24/16 01:15 98.4 110 16 145/82 98 Orders Complete Blood Count With Diff (08/24/16 02:32) Basic Metabolic Panel (Bmp) (08/24/16 02:32) Blood Culture (08/24/16 02:32) C-Reactive Protein (Crp) (08/24/16 02:32) Wound Culture And Gram Stain (08/24/16 02:32) Iv Access Insert/Monitor (08/24/16 02:32) Ecg Monitoring (08/24/16 02:32) Oximetry (08/24/16 02:32) Wound Culture And Gram Stain (08/24/16 02:32) Ankle, Complete ([id number]) (08/24/16 04:21) Bacitracin/Polymyxin Oint (Polysporin Oi (08/24/16 04:30) Wound Care (08/24/16 04:22) Cefepime Inj (Maxipime Inj) (08/24/16 04:45) Mandatory Outpatient Referral (08/24/16 04:36) Labs Laboratory Tests Test 08/24/16 02:40 White Blood Count 4.6 TH/MM3 Red Blood Count 3.63 MIL/MM3 Hemoglobin 11.9 GM/DL Hematocrit 34.6 % Mean Corpuscular Volume 95.4 FL Mean Corpuscular Hemoglobin 32.9 PG Mean Corpuscular Hemoglobin 34.4 % Concent Red Cell Distribution Width 13.2 % Platelet Count 182 TH/MM3 Mean Platelet Volume 8.8 FL Neutrophils (%) (Auto) 55.5 % Lymphocytes (%) (Auto) 20.0 % Monocytes (%) (Auto) 11.2 % Eosinophils (%) (Auto) 12.7 % Basophils (%) (Auto) 0.6 % Neutrophils # (Auto) 2.5 TH/MM3 Lymphocytes # (Auto) 0.9 TH/MM3 Monocytes # (Auto) 0.5 TH/MM3 Eosinophils # (Auto) 0.6 TH/MM3 Basophils # (Auto) 0.0 TH/MM3 CBC Comment DIFF FINAL Differential Comment Sodium Level 140 MEQ/L Potassium Level 3.4 MEQ/L Chloride Level 105 MEQ/L Carbon Dioxide Level 27.2 MEQ/L Anion Gap 8 MEQ/L Blood Urea Nitrogen 9 MG/DL Creatinine 0.71 MG/DL Estimat Glomerular Filtration 117 ML/MIN Rate Random Glucose 76 MG/DL Calcium Level 8.8 MG/DL C-Reactive Protein 2.36 MG/DL MDM Medical Decision Making Medical Screen Exam Complete: Yes Emergency Medical Condition: Yes Medical Record Reviewed: Yes Differential Diagnosis Cellulitis, versus bacterial skin infection, versus chronic ulceration, versus bacteremia Narrative Course During the course of the patients emergency department visit, the patients history, examination, and differential diagnosis were reviewed with the patient. The patient had IV access obtained and blood work sent for analysis. The patient states on a court monitor with oximetry and blood pressure monitoring. The patient was initially provided a dose of cefepime 2 g IV as the patient had pseudomonas grow out on his prior wound culture which was sensitive to this. The patients laboratory studies were reviewed and remarkable for a white count of 4.6, hemoglobin 11.9, platelets 182 with 11.2 monocytes, eosinophils 12.7, basic metabolic profile is remarkable for potassium of 3.4, C-reactive protein 2.36 Radiology studies were reviewed and remarkable for [-] The patient will be sent home with a mandatory follow-up through the outpatient referral system with the infectious disease doctor that the patient previously saw, Dr. Kathi Ceja. He will also be given a mandatory follow-up with the wound care center. The patient's wounds were redressed after application of antibiotic ointment and a nonstick dressing. The patient is resting comfortably and feels better, is alert and in no distress. The patients results and examination findings were discussed with the patient. The repeat examination is unremarkable and benign. The history, exam, diagnostic testing, and current condition do not suggest any significant pathology to warrant further testing, continued ED treatment, admission, or surgical evaluation at this point. The vital signs have been stable. The patient does not have uncontrollable pain, intractable vomiting, or other significant symptoms. The patient's condition is stable and appropriate for discharge. The patient will pursue further outpatient evaluation with a primary care physician or other designated or consulting physician as indicated in the discharge instructions. The patient expressed understanding and was agreeable with this plan. Diagnosis Primary Impression: Ulcers of both lower extremities Qualified Code: L97.912 - Ulcers of both lower extremities, with fat layer exposed Referrals: Kathi Ceja MD 1 day [facility] Advanced Wound Healing 1 day [facility] 2 days Patient Instructions: Chronic Wound Care (ED), General Instructions Disposition: 01 DISCHARGE HOME Condition: Stable Michaela Chester MD Aug 24, 2016 03:28
[2016-08-24 04:10] LABS: BICARBONATE 27.2 MEQ/L (21.0-32.0); POTASSIUM 3.4 MEQ/L (3.5-5.1)
[2016-08-24] MEDS ORDERED: BACITRACIN/POLYMYXIN B 15 GM TUBE TOPICAL ONE (04:30)
[2016-08-24] MEDS ORDERED: CEFEPIME INJ 2,000 MG in SODIUM CHLORIDE 0.9% INJ 100 ML IV ONE (04:45)
--- NOTE | 2016-08-24 04:56 | RADRPT ---
EXAM DATE/TIME: 08/24/2016 04:48 [place] COMPARISON: No previous studies available for comparison. INDICATIONS : Pain, swelling, and open wound to ankle. no known injury. MEDICAL HISTORY : None. SURGICAL HISTORY : None. ENCOUNTER: Initial ACUITY: 1 day PAIN SCORE: 8/10 LOCATION: Right Ankle FINDINGS: Three view exam was performed of the right ankle. The bony structures are in normal alignment. No e vidence of fracture or dislocation. There is soft tissue swelling. The ankle mortise is intact. No radiopaque foreign bodies are seen. Bony mineralization is normal. CONCLUSION: Soft tissue swelling without fracture. Saad Fuller MD on August 24, 2016 at 4:53 Board Certified Radiologist. This report was verified electronically.
== END 2016-08-24 05:53 | disposition home or self-care (01) ==
LOC: NEPC 01:13
DX: L97.912 Non-pressure chronic ulcer of unspecified part of right lower leg with fat layer exposed (principal); F19.21 Other psychoactive substance dependence, in remission; B96.5 Pseudomonas (aeruginosa) (mallei) (pseudomallei) as the cause of diseases classified elsewhere; Z16.30 Resistance to unspecified antimicrobial drugs
CPT/HCPCS: 73610; 80048; 85025; 86140; 87040; 87070; 87077; 87186; 96374; 99284; J0692

== ENCOUNTER 2016-08-28 22:30 | Emergency (ER) | payer SELFPAY ==
[~2016-08-28] VITALS: Ht 172.7 cm; Wt 72.5 kg
[2016-08-28 22:35] VITALS: BP 133/92; PULSE 121; RESP 16; TEMP 98.6; O2SAT 95
[2016-08-29] MEDS ORDERED: CIPR500T2 PO (03:55)
== END 2016-08-28 23:50 | disposition left against medical advice (07) ==
LOC: NETRI 22:30
DX: R78.9 Finding of unspecified substance, not normally found in blood (principal)
CPT/HCPCS: 99281

== ENCOUNTER 2016-08-29 02:39 | Emergency (ER) | payer SELFPAY ==
[~2016-08-29] VITALS: Ht 172.7 cm; Wt 73.0 kg
[2016-08-29] MEDS ORDERED: CIPR500T2 PO (03:55)
--- NOTE | 2016-08-29 03:56 | PD ---
HPI Chief Complaint: CULTURE, CALLED TO COME IN Time Seen by Provider: 03:38 Travel History International Travel<30 days: No Contact w/Intl Traveler<30days: No Traveled to known affect area: No History of Present Illness HPI PATIENT STATES THAT HE WAS CALLED TO COME IN BECAUSE HE HAD POSITIVE CULTURES TO HIS WOUND...CHRONIC WOUNDS THAT HE HAS HAD FOR MONTHS. PFSH Past Medical History Hx Anticoagulant Therapy: No Blood Disorders: No Anxiety: No Depression: No Cancer: No Cardiovascular Problems: No Chemotherapy: No Cerebrovascular Accident: No Diabetes: No Diminished Hearing: No Endocrine: No Gastrointestinal Disorders: No Genitourinary: No Immune Disorder: No Kidney Stones: Yes Musculoskeletal: No Neurologic: No Psychiatric: Yes (methadone therapy, prior opiate addiction ) Reproductive: No Respiratory: No Integumentary: Yes (CELLULITIS) Immunizations Current: Yes Past Surgical History Abdominal Surgery: No AICD: No Cardiac Surgery: No Ear Surgery: No Endocrine Surgery: No Eye Surgery: No Genitourinary Surgery: No Gynecologic Surgery: No Hysterectomy: No Joint Replacement: No Oral Surgery: No Pacemaker: No Thoracic Surgery: No Social History Alcohol Use: Yes (rare) Tobacco Use: No Substance Use: No Allergies-Medications (Allergen,Severity, Reaction): Coded Allergies: Adhesives (Verified Allergy, Severe, 08/19/16) Nubain (Verified Allergy, Severe, 08/19/16) Talwin (Verified Allergy, Severe, 08/19/16) *MDRO Multi-Drug Resistant Organism (Verified Adverse Reaction, Unknown, ) 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 EXCEPT FOR ULCERS AT LEFT MEDIAL AND RIGHT LATERAL/ POSTERIOR ANKLE REGION. NOT ACTIVELY WEEPING. HEAD: Atraumatic. Normocephalic. EYES: Pupils equal and round. No scleral icterus. No injection or drainage. ENT: No nasal bleeding or discharge. Mucous membranes pink and moist. NECK: Trachea midline. No JVD. CARDIOVASCULAR: Regular rate and rhythm. RESPIRATORY: No accessory muscle use. Clear to auscultation. Breath sounds equal bilaterally. GASTROINTESTINAL: Abdomen soft, non-tender, nondistended. Hepatic and splenic margins not palpable. MUSCULOSKELETAL: Extremities without clubbing, cyanosis, or edema. No obvious deformities. NEUROLOGICAL: Awake and alert. No obvious cranial nerve deficits. Motor grossly within normal limits. Five out of 5 muscle strength in the arms and legs. Normal speech. PSYCHIATRIC: Appropriate mood and affect; insight and judgment normal. Data Data Last Documented VS Vital Signs Date Time Temp Pulse Resp B/P Pulse Ox O2 Delivery O2 Flow Rate FiO2 08/29/16 04:00 98.2 91 16 127/83 97 Orders Levofloxacin 750 Mg Premix Inj (Levaquin (08/29/16 04:00) MDM Medical Decision Making Medical Screen Exam Complete: Yes Emergency Medical Condition: Yes Medical Record Reviewed: Yes Differential Diagnosis NONE PT CALLED FOR ANTIBIOTIC TREATMENT FOR DEPENDANT WOUND ULCER POSTIVE WOUND CULTURE WITH PSEUDOMONAS Narrative Course PATIENT GIVEN IV LEVAQUIN FOR PSEUDOMONAS ON WOUND CULTURE, NEG BLOOD CULTURE, TOLERATED PO, WOUND CARE PROVIDED, WILL D/C ON PO CIPRO Diagnosis Primary Impression: Ulcers of both lower extremities Qualified Code: L97.919 - Ulcers of both lower extremities, with unspecified severity Additional Impression: PSEUDOMONAS TO WOUND ULCERS Scripts Ciprofloxacin 500 Mg Cpe255 Mg PO BID #20 TAB Prov:Oswald Rowe MD 08/29/16 Disposition: 01 DISCHARGE HOME Condition: Stable Oswald Rowe MD Aug 29, 2016 03:56 Condition: Stable Oswald Rowe MD Aug 29, 2016 03:56
[2016-08-29 04:00] VITALS: BP 127/83; PULSE 91; RESP 16; TEMP 98.2; O2SAT 97
[2016-08-29] MEDS ORDERED: LEVOFLOXACIN 750 MG PREMIX INJ 150 ML IV ONE (04:00)
== END 2016-08-29 06:51 | disposition home or self-care (01) ==
LOC: NEPC 02:39
DX: L97.329 Non-pressure chronic ulcer of left ankle with unspecified severity (principal); L97.319 Non-pressure chronic ulcer of right ankle with unspecified severity; Z79.899 Other long term (current) drug therapy
CPT/HCPCS: 96374; 99284; J1956